=== PATIENT | male | born 1970 | race Caucasian/White ===

== ENCOUNTER 2017-01-18 08:08 | Emergency (ER) | payer BC ==
[2017-01-18 08:12] VITALS: RESP 18; TEMP 98.3
[2017-01-18] MEDS ORDERED: CYCLOBENZAPRINE 10 MG TAB PO STA (08:25)
[2017-01-18] MEDS ORDERED: HYDROmorphone 2 MG/ML 1 ML SYRINGE IM STA (08:25)
--- NOTE | 2017-01-18 08:51 | ED ---
Back Pain HPI - General Chief Complaint: Back Pain/Injury Stated Complaint: Back Pain Time Seen by Provider: 01/18/17 08:13 Source: patient, RN notes reviewed Mode of arrival: wheelchair Limitations: no limitations - History of Present Illness Initial Comments: This a 46-year-old male presents emergency Department chief complaint of right low back pain. Patient states at 545am this morning he was doing leg press states that he was playing the weights back towards him when he felt a sudden onset of pain in his right low back. He states he felt a pop and states that he has pain radiating from that region down his right leg in the posterior aspect. He states it goes just past his knee. Patient states that he has had issues with his back in the past but states it primarily on his left side in which she did receive injections in his back and help. Patient states he normally takes naproxen and baclofen. Patient denies any bowel incontinence or bladder retention. Patient denies any abdominal pain including nausea vomiting diarrhea constipation. Patient denies any dysuria or hematuria. Patient has not taken any medications prior arrival for this pain. He states it's very unbearable. He states makes it hard to move his right leg - Related Data Home Medications Medication Instructions Recorded Confirmed Dextroamphetamine/Amphetamine 30 ng PO DAILY 03/29/14 01/18/17 [Adderall Xr] Dextroamphetamine/Amphetamine 20 mg PO AC-LUNCH 03/29/14 01/18/17 [Adderall] Naproxen 500 mg PO BID PRN 03/29/14 01/18/17 Baclofen [Lioresal] 20 mg PO TID 01/18/17 01/18/17 Lisinopril [Prinivil] 10 mg PO DAILY 01/18/17 01/18/17 Pravastatin Sodium [Pravachol] 40 mg PO HS 01/18/17 01/18/17 Pregabalin [Lyrica] 50 mg PO TID 01/18/17 01/18/17 Testosterone Cypionate 200 mg IM Q14D 01/18/17 01/18/17 [Depo-Testosterone] buPROPion HCL [Wellbutrin SR] 200 mg PO BID 01/18/17 01/18/17 Previous Rx's Medication Instructions Recorded Hydrocodone/Acetaminophen [Freedom 1 tab PO Q6HR PRN #20 tab 01/18/17 5-325] Allergies Allergy/AdvReac Type Severity Reaction Status Date / Time fentanyl Allergy Rash/Hives Verified 01/18/17 08:31 moxifloxacin HCl Allergy Anaphylaxis Verified 01/18/17 08:31 [From Avelox] duloxetine HCl AdvReac Nausea & Verified 01/18/17 08:31 [From Cymbalta] Vomiting Review of Systems ROS Statement: Those systems with pertinent positive or pertinent negative responses have been documented in the HPI. ROS Other: All systems not noted in ROS Statement are negative. Past Medical History Past Medical History: Cancer, Chest Pain / Angina, Hyperlipidemia, Hypertension , Memory Impairment, Musculoskeletal Disorder, Neurologic Disorder, Sleep Apnea/ CPAP/BIPAP Additional Past Medical History / Comment(s): cyst on one kidney, severe dizzy spells, cancer --skin cancer x2, trigeminal nerve damage, back pain, sleep apnea (does not use c-pap), occasional rapid heart rate. History of Any Multi-Drug Resistant Organisms: None Reported Additional Past Surgical History / Comment(s): sinus surgery x3, skin cancer removal, orbital fracture repair Past Anesthesia/Blood Transfusion Reactions: No Reported Reaction Past Psychological History: Anxiety, Depression, Panic Disorder, PTSD Smoking Status: Never smoker Past Alcohol Use History: Rare Past Drug Use History: None Reported - Past Family History Mother Family Medical History: Diabetes Mellitus, Rheumatoid Arthritis (RA) General Exam Limitations: no limitations General appearance: alert, in no apparent distress Head exam: Present: atraumatic, normocephalic, normal inspection Neck exam: Present: normal inspection, full ROM. Absent: tenderness, meningismus, lymphadenopathy Respiratory exam: Present: normal lung sounds bilaterally. Absent: respiratory distress, wheezes, rales, rhonchi, stridor Cardiovascular Exam: Present: regular rate, normal rhythm, normal heart sounds. Absent: systolic murmur, diastolic murmur, rubs, gallop, clicks GI/Abdominal exam: Present: soft, normal bowel sounds. Absent: distended, tenderness, guarding, rebound, rigid Extremities exam: Present: other (Lower extremity neurovascular intact equal clinical warmth) Back exam: Present: tenderness (Moderate tenderness right lumbar paraspinal L4- L5, sacral), paraspinal tenderness. Absent: full ROM (Decreased range of motion secondary to pain, patient states able to perform range of motion is not for the pain), CVA tenderness (R), CVA tenderness (L), vertebral tenderness Neurological exam: Present: alert, oriented X3, CN II-XII intact, reflexes normal. Absent: motor sensory deficit Skin exam: Present: warm, dry, intact, normal color. Absent: rash Course Vital Signs 01/18/17 08:10 Temperature 98.3 F Pulse Rate 115 H Respiratory 18 Rate Blood Pressure 136/87 O2 Sat by Pulse 96 Oximetry Medical Decision Making - Medical Decision Making 46-year-old male present emergency from her with chief complaint of low back pain. Patient CT compared to thousand 15 shows mild progression of discharge duration. Patient has disc bulging noted no obvious disc herniation. We did discuss MRI is a better study. Patient with follow-up with primary care physician and Dr. Houston back specialist. Patient be given Freedom. We did discuss steroids though he states he was just on recent steroids and he had some side effects from it. Patient prefers not to go on any steroids at this time. Patient will use Robaxin that he has at home in addition to the Freedom that I will prescribe him. Return parameters were discussed. Patient has no red flag symptoms. Disposition Clinical Impression: Strain of lumbar region, Bulging lumbar disc, Lumbar radiculopathy Disposition: HOME SELF-CARE Condition: Stable Instructions: Acute Low Back Pain (ED) Additional Instructions: Please return to the Emergency Department if symptoms worsen or any other concerns. Prescriptions: Hydrocodone/Acetaminophen [Freedom 5-325] 1 tab PO Q6HR PRN #20 tab PRN Reason: Pain Referrals: Neal Arredondo MD [Primary Care Provider] - 1-2 days Louisa Boo DO [Doctor of Osteopathic Medicine] - 1-2 days Time of Disposition: 09:10
--- NOTE | 2017-01-18 08:58 | CT ---
EXAMINATION TYPE: CT lumbar spine wo con DATE OF EXAM: 01/18/2017 8:49 AM COMPARISON: MRI lumbar spine dated 01/20/2015. HISTORY: Back pain CT DLP: 622.4 mGycm Automated exposure control for dose reduction was used. Unenhanced CT of the lumbar spine was performed. Bone and soft tissue window settings are submitted as well as coronal and sagittal reconstructions. There has been mild interval progression of multilevel degenerative disc disease in comparison to the prior MRI of 2014. Vertebral bodies maintain normal vertebral body height and alignment. Mild facet arthropathy is seen at L3-L4, L4-L5 and L5-S1. There is no evidence of acute fracture or malalignment of the lumbosacral spine. Note is made of left hemisacralization of L5. Mild atheromatous changes ar e seen of the visualized abdominal aorta. L1-L2: Normal disc space height. No disc herniation protrusion or central stenosis. No facet joint arthropathy. No evidence for foraminal encroachment. L2-L3: There is flattening of the usual disc convexity posteriorly from a broad-based disc bulge resu lting in mild bilateral neural foraminal narrowing. No spinal canal stenosis. No focality to suggest herniation. L3-L4: Broad-based disc bulge in combination with facet arthropathy creates moderate bilateral neural foraminal narrowing. There is also resultant mild spinal canal stenosis. L4-L5: Right eccentric broad-based disc bulge creates moderate to severe right neural foraminal narro wing and mild left neural foraminal narrowing in combination with facet arthropathy. Mild spinal del l stenosis is also seen as a result of the above findings. L5-S1: Normal disc space height. No disc herniation protrusion or central stenosis. No facet joint arthropathy. No evidence for foraminal encroachment. IMPRESSION: No CT evidence of disc herniation, although this finding is better evaluated with MRI. Th ere is been interval increase in degenerative disc disease in comparison to the exam of 2014 with bro ad-based disc bulges at L2-L5, right eccentric at L4-L5. This results in mild spinal canal stenosis a t L3-L4 and moderate bilateral neural foraminal narrowing as well as mild spinal canal stenosis at L4 -L5, moderate to severe right neural foraminal narrowing and mild left neural foraminal narrowing.
[2017-01-18] MEDS ORDERED: ONDANSETRON 4 MG ODT STARTER PACK 2 TAB BTL PO STA (09:22)
[2017-01-18] MEDS ORDERED: ONDANSETRON ODT 4 MG TAB PO STA (09:22)
[2017-01-18 09:31] VITALS: BP 122/63; PULSE 97
== END 2017-01-18 09:31 | disposition home or self-care (01) ==
LOC: EC 08:08
DX: S39.012A Strain of muscle, fascia and tendon of lower back, initial encounter (principal); M51.16 Intervertebral disc disorders with radiculopathy, lumbar region; E78.5 Hyperlipidemia, unspecified; I10 Essential (primary) hypertension; M62.9 Disorder of muscle, unspecified; F32.9 Major depressive disorder, single episode, unspecified; Z79.899 Other long term (current) drug therapy; Z88.1 Allergy status to other antibiotic agents; Z88.5 Allergy status to narcotic agent; Z88.8 Allergy status to other drugs, medicaments and biological substances; Z85.828 Personal history of other malignant neoplasm of skin; Z98.890 Other specified postprocedural states; Z82.61 Family history of arthritis; X50.9XXA Other and unspecified overexertion or strenuous movements or postures, initial encounter; Y93.B9 Activity, other involving muscle strengthening exercises
CPT/HCPCS: 72131; 99283; 96372; J1170; S0119

== ENCOUNTER → 2017-11-07 | Outpatient (CLI) | payer BC ==
--- NOTE | 2017-11-07 17:04 | US ---
EXAMINATION TYPE: US kidneys/renal and bladder DATE OF EXAM: 11/07/2017 COMPARISON: CLINICAL HISTORY: Renal Cyst N28.1. hx of right renal cyst. No pain. EXAM MEASUREMENTS: Right Kidney: 9.5 x 5.7 x 5.2 cm Left Kidney: 11.1 x 4.8 x 5.4 cm Right Kidney: Two simple cystic appearing lesions seen. 1- pedunculated mid pole = 0.8 x 1.1 x 0.8 c m. 2- cortical in lower pole= 0.6 x 1.0 x 0.8 cm Left Kidney: dromedary hump seen Bladder: distended, wnl as visualized Bilateral Jets seen IMPRESSION: Small right renal cysts. No evidence of solid renal mass or obstruction.
== END | disposition home or self-care (01) ==
LOC: RADUSWWP 16:19
PROVIDERS: ATTEND Urology
DX: N28.1 Cyst of kidney, acquired (principal)
CPT/HCPCS: 76770

== ENCOUNTER 2020-04-26 21:02 | Observation (INO) | payer BC ==
[2020-04-26] MEDS ORDERED: SODIUM CHLORIDE 0.9% 1,000 ML IV STA (21:55)
[2020-04-26] MEDS ORDERED: MORPHINE SULFATE 4 MG/ML SYRINGE IV STA (21:55)
[2020-04-26] MEDS ORDERED: LIDOCAINE 5% PATCH TOPICAL STA (21:57)
--- NOTE | 2020-04-26 21:58 | ED ---
General Adult HPI - General Source: patient Mode of arrival: wheelchair Limitations: no limitations <German Miller - Last Filed: 04/27/20 12:12> - General Source: RN notes reviewed, old records reviewed <Manish Doherty - Last Filed: 04/28/20 02:37> - General Chief complaint: Chest Pain Stated complaint: Chest Pain Time Seen by Provider: 04/26/20 21:24 - History of Present Illness Initial comments: Dictation was produced using [employer] dictation software. please excuse any grammatical, word or spelling errors. This patient was cared for during a federal and state declared state of emergency secondary to Covid 19 Chief Complaint: 41-year-old male with past medical history of hypertension, high cholesterol presents to the emergency department for chest pain History of Present Illness: She is 49-year-old male presents today with chest pain. Patient has multiple comorbidities. Patient states that lasts 24-48 hours he's been developing left anterior chest pain with radiation to the left upper back. States it's causing him pain especially when he takes a deep breath. Patient also complaining of right popliteal pain. Patient has no history of blood clots. Last week patient was recently started on cholesterol medication. Patient has any fever. No cough. He does also feel worse pain whenever he presses on his left anterior chest. No history of coronary artery disease. The ROS documented in this emergency department record has been reviewed and confirmed by me. Those systems with pertinent positive or negative responses have been documented in the HPI. All other systems are other negative and/or noncontributory. PHYSICAL EXAM: General Impression: Alert and oriented x3, acute distress secondary to pain HEENT: Normocephalic atraumatic, extra-ocular movements intact, pupils equal and reactive to light bilaterally, mucous membranes moist. Cardiovascular: Heart regular rate and rhythm Chest: Able to complete full sentences, no retractions, no tachypnea, tenderness to palpation of the left anterior chest at approximately the ninth rib anterior axillary line Abdomen: abdomen soft, non-tender, non-distended, no organomegaly Musculoskeletal: Pulses present and equal in all extremities, no peripheral edema Motor: no focal deficits noted Neurological: CN II-XII grossly intact, no focal motor or sensory deficits noted Skin: Intact with no visualized rashes Psych: Normal affect and mood ED course: 49 y Old male presents with pleuritic chest pain. Does appear to be in mild distress. Clinical presentation suspicious for pulmonary embolus. All signs upon arrival shows findings within acceptable limits. 3 evaluation obtained. CBC is negative. Coag panel is negative. D-dimer is elevated 2.83. Metabolic panel is negative. Troponins negative. Patient signed out to Dr. Mendez will follow-up with CT angios results and results for the venous duplex ultrasound the right lower extremity. EKG interpretation: Ventricular rate 74, normal sinus rhythm, GA interval 190, QRS 90, QTC 399. No GA prolongation, no QTC prolongation, no ST or T-wave changes noted. EKG compared to 06/11/2014 showing no changes. Overall, this EKG is unremarkable (German Miller) - Related Data Home Medications Medication Instructions Recorded Confirmed Naproxen 500 mg PO BID PRN 03/29/14 04/27/20 Pravastatin Sodium [Pravachol] 80 mg PO HS 01/18/17 04/27/20 Testosterone Cypionate 200 mg IM Q14D 01/18/17 04/27/20 [Depo-Testosterone] Lisdexamfetamine Dimesylate 70 mg PO QAM 04/27/20 04/27/20 [Vyvanse] Metoprolol Tartrate 25 mg PO BID 04/27/20 04/27/20 Omeprazole 20 mg PO BID 04/27/20 04/27/20 Tadalafil [Cialis] 20 mg PO DAILY 04/27/20 04/27/20 Tamsulosin HCl [Flomax] 0.4 mg PO DAILY 04/27/20 04/27/20 buPROPion HCL [Wellbutrin XL] 450 mg PO DAILY 04/27/20 04/27/20 methocarbamoL [Robaxin] 500 mg PO TID 04/27/20 04/27/20 modafiniL [Provigil] 200 mg PO BID 04/27/20 04/27/20 Allergies Allergy/AdvReac Type Severity Reaction Status Date / Time fentanyl Allergy Rash/Hives Verified 04/27/20 09:26 moxifloxacin HCl Allergy Anaphylaxis Verified 04/27/20 09:26 [From Avelox] duloxetine HCl AdvReac Nausea & Verified 04/27/20 09:26 [From Cymbalta] Vomiting Review of Systems ROS Other: All systems not noted in ROS Statement are negative. <German Miller - Last Filed: 04/27/20 12:12> ROS Other: All systems not noted in ROS Statement are negative. <MayraManish harris Clay - Last Filed: 04/28/20 02:37> ROS Statement: Those systems with pertinent positive or pertinent negative responses have been documented in the HPI. Past Medical History Past Medical History: Cancer, Chest Pain / Angina, Hyperlipidemia, Hypertension, Memory Impairment, Musculoskeletal Disorder, Neurologic Disorder, Sleep Apnea/CPAP/BIPAP Additional Past Medical History / Comment(s): cyst on one kidney, severe dizzy spells, cancer --skin cancer x2, trigeminal nerve damage, back pain, sleep apnea(does not use c-pap), occasional rapid heart rate. History of Any Multi-Drug Resistant Organisms: None Reported Additional Past Surgical History / Comment(s): sinus surgery x3, skin cancer removal, orbital fracture repair Past Anesthesia/Blood Transfusion Reactions: No Reported Reaction Past Psychological History: Anxiety, Depression, Panic Disorder, PTSD Smoking Status: Never smoker Past Alcohol Use History: Rare Past Drug Use History: None Reported - Past Family History Mother Family Medical History: Diabetes Mellitus, Rheumatoid Arthritis (RA) <German Miller - Last Filed: 04/27/20 12:12> General Exam Limitations: no limitations <German Miller - Last Filed: 04/27/20 12:12> General appearance: alert, in no apparent distress Head exam: Present: atraumatic, normocephalic, normal inspection Eye exam: Present: normal appearance, PERRL, EOMI. Absent: scleral icterus, conjunctival injection, periorbital swelling ENT exam: Present: normal exam, mucous membranes moist Neck exam: Present: normal inspection. Absent: tenderness, meningismus, lymphadenopathy Respiratory exam: Present: normal lung sounds bilaterally. Absent: respiratory distress, wheezes, rales, rhonchi, stridor Cardiovascular Exam: Present: regular rate, normal rhythm, normal heart sounds. Absent: systolic murmur, diastolic murmur, rubs, gallop, clicks GI/Abdominal exam: Present: soft, normal bowel sounds. Absent: distended, tenderness, guarding, rebound, rigid Extremities exam: Present: normal inspection, full ROM, normal capillary refill. Absent: tenderness, pedal edema, joint swelling, calf tenderness Back exam: Present: normal inspection Neurological exam: Present: alert, oriented X3, CN II-XII intact Psychiatric exam: Present: normal affect, normal mood Skin exam: Present: warm, dry, intact, normal color. Absent: rash <Manish Doherty - Last Filed: 04/28/20 02:37> Course <Manish Doherty - Last Filed: 04/28/20 02:37> Vital Signs 04/26/20 04/26/20 04/26/20 21:06 21:10 22:00 Temperature 98.4 F Pulse Rate 80 70 Pulse Rate [ 82 Director Of User Experience ] Respiratory 18 20 18 Rate Blood Pressure 112/83 108/81 O2 Sat by Pulse 99 95 Oximetry 04/26/20 04/26/20 04/27/20 23:30 23:57 01:36 Temperature Pulse Rate 76 77 82 Pulse Rate [ Director Of User Experience ] Respiratory 20 18 18 Rate Blood Pressure 118/80 109/81 109/81 O2 Sat by Pulse 99 94 L 95 Oximetry - Reevaluation(s) Reevaluation #1: Medical record is reviewed Patient did have persistent pain here in the emergency department, pleuritic pain significant worse with breathing splinting his breathing. Patient admitted for cardiac (Manish Doherty) Medical Decision Making - Lab Data Result diagrams: 04/26/20 21:56 04/26/20 21:56 <German Miller - Last Filed: 04/27/20 12:12> - Lab Data Result diagrams: 04/26/20 21:56 04/26/20 21:56 <Manish Doherty - Last Filed: 04/28/20 02:37> - Medical Decision Making 49 male to the ER for evaluation of pleuritic chest pain. CT was negative for PE the patient believes admitted for cardiac observation, ultrasound rule out pericarditis (Mnaish Doherty) - Lab Data Lab Results 04/26/20 04/26/20 04/26/20 Range/Units 21:56 21:56 21:56 WBC 11.0 H (3.8-10.6) k/uL RBC 5.54 (4.30-5.90) m/uL Hgb 16.6 (13.0-17.5) gm/dL Hct 49.1 (39.0-53.0) % MCV 88.7 (80.0-100.0) fL MCH 29.9 (25.0-35.0) pg MCHC 33.7 (31.0-37.0) g/dL RDW 13.7 (11.5-15.5) % Plt Count 180 (150-450) k/uL MPV 7.8 Neutrophils % 74 % Lymphocytes % 15 % Monocytes % 6 % Eosinophils % 3 % Basophils % 1 % Neutrophils # 8.2 H (1.3-7.7) k/uL Lymphocytes # 1.7 (1.0-4.8) k/uL Monocytes # 0.7 (0-1.0) k/uL Eosinophils # 0.3 (0-0.7) k/uL Basophils # 0.1 (0-0.2) k/uL PT 10.4 (9.0-12.0) sec INR 1.0 (<1.2) APTT 21.8 L (22.0-30.0) sec D-Dimer 2.83 H (<0.60) mg/L FEU Sodium 136 L (137-145) mmol/L Potassium 5.2 H (3.5-5.1) mmol/L Chloride 102 (98-107) mmol/L Carbon Dioxide 25 (22-30) mmol/L Anion Gap 9 mmol/L BUN 28 H (9-20) mg/dL Creatinine 1.28 H (0.66-1.25) mg/dL Est GFR (CKD-EPI)AfAm 76 (>60 ml/min/1.73 sqM) Est GFR (CKD-EPI)NonAf 66 (>60 ml/min/1.73 sqM) Glucose 86 (74-99) mg/dL Calcium 9.7 (8.4-10.2) mg/dL Magnesium 2.2 (1.6-2.3) mg/dL Total Bilirubin 0.7 (0.2-1.3) mg/dL AST 24 (17-59) U/L ALT 29 (4-49) U/L Alkaline Phosphatase 59 (38-126) U/L Creatine Kinase 68 (55-170) U/L Troponin I (0.000-0.034) ng/mL Total Protein 7.6 (6.3-8.2) g/dL Albumin 4.6 (3.5-5.0) g/dL 04/26/20 Range/Units 21:56 WBC (3.8-10.6) k/uL RBC (4.30-5.90) m/uL Hgb (13.0-17.5) gm/dL Hct (39.0-53.0) % MCV (80.0-100.0) fL MCH (25.0-35.0) pg MCHC (31.0-37.0) g/dL RDW (11.5-15.5) % Plt Count (150-450) k/uL MPV Neutrophils % % Lymphocytes % % Monocytes % % Eosinophils % % Basophils % % Neutrophils # (1.3-7.7) k/uL Lymphocytes # (1.0-4.8) k/uL Monocytes # (0-1.0) k/uL Eosinophils # (0-0.7) k/uL Basophils # (0-0.2) k/uL PT (9.0-12.0) sec INR (<1.2) APTT (22.0-30.0) sec D-Dimer (<0.60) mg/L FEU Sodium (137-145) mmol/L Potassium (3.5-5.1) mmol/L Chloride (98-107) mmol/L Carbon Dioxide (22-30) mmol/L Anion Gap mmol/L BUN (9-20) mg/dL Creatinine (0.66-1.25) mg/dL Est GFR (CKD-EPI)AfAm (>60 ml/min/1.73 sqM) Est GFR (CKD-EPI)NonAf (>60 ml/min/1.73 sqM) Glucose (74-99) mg/dL Calcium (8.4-10.2) mg/dL Magnesium (1.6-2.3) mg/dL Total Bilirubin (0.2-1.3) mg/dL AST (17-59) U/L ALT (4-49) U/L Alkaline Phosphatase (38-126) U/L Creatine Kinase (55-170) U/L Troponin I <0.012 (0.000-0.034) ng/mL Total Protein (6.3-8.2) g/dL Albumin (3.5-5.0) g/dL Disposition Decision Time: 12:14 <German Miller - Last Filed: 04/27/20 12:12> Is patient prescribed a controlled substance at d/c from ED?: No <Manish Doherty - Last Filed: 04/28/20 02:37> Clinical Impression: Chest pain, Anterior pleuritic pain Disposition: ADMITTED IP TO THIS HOSP Condition: Good
[2020-04-26 22:07] LABS: Basophils # (A) 0.1 k/uL (0-0.2); Basophils % (A) 1 %; Eosinophils # (A) 0.3 k/uL (0-0.7); Eosinophils % (A) 3 %; HCT 49.1 % (39.0-53.0); HGB 16.6 gm/dL (13.0-17.5); Lymphocytes # (A) 1.7 k/uL (1.0-4.8); Lymphocytes % (A) 15 %; MCH 29.9 pg (25.0-35.0); MCHC 33.7 g/dL (31.0-37.0); MCV 88.7 fL (80.0-100.0); Mean Platelet Volume 7.8; Monocytes # (A) 0.7 k/uL (0-1.0); Monocytes % (A) 6 %; Neutrophils # (A) 8.2 k/uL (1.3-7.7); Neutrophils % (A) 74 %; Platelet Count 180 k/uL (150-450); RBC 5.54 m/uL (4.30-5.90); RDW 13.7 % (11.5-15.5)
--- NOTE | 2020-04-26 22:10 | XR ---
EXAMINATION TYPE: XR chest 1V portable DATE OF EXAM: 04/26/2020 COMPARISON: NONE HISTORY: Chest pain TECHNIQUE: Single view FINDINGS: There is no heart failure nor confluent pneumonic infiltrate. Costophrenic angles are clear . There are chest leads. IMPRESSION: No active cardiopulmonary disease.
[2020-04-26 22:22] LABS: Albumin 4.6 g/dL (3.5-5.0); Calcium 9.7 mg/dL (8.4-10.2); Magnesium 2.2 mg/dL (1.6-2.3); Potassium 5.2 mmol/L (3.5-5.1); Total Bilirubin 0.7 mg/dL (0.2-1.3); Total Protein 7.6 g/dL (6.3-8.2)
[2020-04-26] MEDS ORDERED: ONDANSETRON 4 MG/2 ML VIAL IVP STA (22:27)
[2020-04-26 22:31] LABS: Partial Thromboplastin Time 21.8 sec (22.0-30.0); Prothrombin Time 10.4 sec (9.0-12.0)
[2020-04-26 22:35] LABS: D-Dimer 2.83 mg/L FEU (<0.60)
[2020-04-26] MEDS ORDERED: HYDROmorphone 0.5 MG/0.5 ML SYRINGE IVP STA (23:40)
--- NOTE | 2020-04-26 23:50 | CT ---
EXAMINATION TYPE: CT angio chest DATE OF EXAM: 04/26/2020 COMPARISON: None HISTORY: SOB/ Chest pain CT DLP: 415.6 mGycm Automated exposure control for dose reduction was used. CONTRAST: Performed with IV Contrast, patient injected with 90 mL of Isovue 370. There are 3-D post processed images. There is mild subsegmental atelectasis in the posterior lung schmidt. There is no pulmonary mass. Ther e is no pleural effusion. There is no pericardial effusion. Heart appears normal. There is no mediastinal adenopathy. There are no hilar masses. Thoracic aorta is intact. There is no aneurysm or dissection. The ascending aorta measures 3.5 cm. There is normal contrast opacification of the pulmonary arteries. There are no filling defects. The thoracic spine is intact. There is no compression fracture. I see no bony destructive process. St ernum is intact. IMPRESSION: Mild subsegmental atelectasis in the posterior lung schmidt. No evidence of pulmonary embolism.
--- NOTE | 2020-04-26 23:59 | US ---
EXAMINATION TYPE: US venous doppler duplex LE RT DATE OF EXAM: 04/26/2020 11:50 PM COMPARISON: NONE CLINICAL HISTORY: popliteal pain. right knee pain SIDE PERFORMED: right TECHNIQUE: The lower extremity deep venous system is examined utilizing real time linear array sonog mukesh with graded compression, doppler sonography and color-flow sonography. VESSELS IMAGED: Common Femoral Vein Deep Femoral Vein Greater Saphenous Vein * Femoral Vein Popliteal Vein Small Saphenous Vein * Proximal Calf Veins (* superficial vessels) Right Leg: no evidence of DVT as visualized IMPRESSION: No sign of deep vein thrombosis in the right leg.
[2020-04-27] MEDS ORDERED: NITROGLYCERIN SL TABS 0.4 MG TAB SUBLINGUAL PRN (00:42)
[2020-04-27] MEDS ORDERED: ASPIRIN 81 MG PO STA (00:42)
[2020-04-27] MEDS ORDERED: DIAZEPAM 5 MG/ML 2 ML INJ IVP STA (01:20)
[2020-04-27] MEDS ORDERED: KETOROLAC 15 MG/ML 1 ML VIAL IVP STA (01:20)
[2020-04-27] MEDS: MORPHINE SULFATE 4 MG/ML SYRINGE IV PRN ×2 (04:19→07:25)
[2020-04-27] MEDS ORDERED: KETOROLAC 15 MG/ML 1 ML VIAL IVP SCH (06:00)
[2020-04-27] MEDS ORDERED: TESTOSTERONE CYPIONATE 200 MG/ML 1ML VIAL IM SCH (09:00)
[2020-04-27] MEDS: lisinopriL 10 MG TAB PO SCH ×2 (09:41→09:45)
[2020-04-27] MEDS: BACLOFEN 10 MG TAB PO SCH ×3 (09:41→21:41)
[2020-04-27] MEDS: buPROPion SR 100 MG TABLET.ER PO SCH ×2 (09:41→21:40)
[2020-04-27] MEDS: PREGABALIN 50 MG CAP PO SCH ×3 (09:41→21:40)
--- NOTE | 2020-04-27 09:46 | P.HPIM ---
History of Present Illness H&P Date: 04/27/20 Chief Complaint: Chest pain This 49-year-old male known to the practice history of hypertension hypercholesterolemia, patient states that approximately 10 days ago was seen at the [facility] for upper left-sided back pain, for which she was treated with prednisone resulting in some improvement. Symptoms persisted and approximately 48 hours ago he began developing anterior wall chest pain with radiation to the left upper back. Complains of pain with deep breaths. Patient does not complain of cough does not complain of fever does have increased pain with deep w palpation on the left anterior chest wall. Serial troponins are unremarkable, CT demonstrated no evidence of PE, pulse oximetry is also within normal limits Review of Systems Constitutional: Reports as per HPI Ears, nose, mouth and throat: Reports as per HPI Cardiovascular: Reports chest pain, Reports high blood pressure Respiratory: Reports as per HPI Gastrointestinal: Reports as per HPI Genitourinary: Reports as per HPI Musculoskeletal: Reports as per HPI Integumentary: Reports as per HPI Neurological: Reports as per HPI Psychiatric: Reports as per HPI Endocrine: Reports as per HPI Past Medical History Past Medical History: Cancer, Chest Pain / Angina, Hyperlipidemia, Hypertension, Memory Impairment, Musculoskeletal Disorder, Neurologic Disorder, Sleep Apnea/CPAP/BIPAP Additional Past Medical History / Comment(s): cyst on one kidney, severe dizzy spells, cancer --skin cancer x2, trigeminal nerve damage, back pain, sleep apnea(does not use c-pap), occasional rapid heart rate. History of Any Multi-Drug Resistant Organisms: None Reported Additional Past Surgical History / Comment(s): sinus surgery x3, skin cancer removal, orbital fracture repair Past Anesthesia/Blood Transfusion Reactions: No Reported Reaction Past Psychological History: Anxiety, Depression, Panic Disorder, PTSD Smoking Status: Never smoker Past Alcohol Use History: Rare Past Drug Use History: None Reported - Past Family History Mother Family Medical History: Diabetes Mellitus, Rheumatoid Arthritis (RA) Medications and Allergies Home Medications Medication Instructions Recorded Confirmed Type Dextroamphetamine/Amphetamine 30 ng PO DAILY 03/29/14 01/18/17 History [Adderall Xr] Dextroamphetamine/Amphetamine 20 mg PO AC-LUNCH 03/29/14 01/18/17 History [Adderall] Naproxen 500 mg PO BID PRN 03/29/14 01/18/17 History Baclofen [Lioresal] 20 mg PO TID 01/18/17 01/18/17 History Hydrocodone/Acetaminophen [[place]mes 1 tab PO Q6HR PRN #20 tab 01/18/17 Rx 5-325] Lisinopril [Prinivil] 10 mg PO DAILY 01/18/17 01/18/17 History Pravastatin Sodium [Pravachol] 40 mg PO HS 01/18/17 01/18/17 History Pregabalin [Lyrica] 50 mg PO TID 01/18/17 01/18/17 History Testosterone Cypionate 200 mg IM Q14D 01/18/17 01/18/17 History [Depo-Testosterone] buPROPion HCL [Wellbutrin SR] 200 mg PO BID 01/18/17 01/18/17 History Allergies Allergy/AdvReac Type Severity Reaction Status Date / Time fentanyl Allergy Rash/Hives Verified 04/26/20 21:09 moxifloxacin HCl Allergy Anaphylaxis Verified 04/26/20 21:09 [From Avelox] duloxetine HCl AdvReac Nausea & Verified 04/26/20 21:09 [From Cymbalta] Vomiting Physical Exam Osteopathic Statement: *. No significant issues noted on an osteopathic structural exam other than those noted in the History and Physical/Consult. Vitals: Vital Signs Temp Pulse Pulse Resp BP BP Pulse Ox 04/27/20 06:51 97.5 F L 68 18 110/72 96 04/27/20 02:15 98.6 F 76 109/71 96 04/27/20 02:10 76 04/27/20 01:36 82 18 109/81 95 04/26/20 23:57 77 18 109/81 94 L 04/26/20 23:30 76 20 118/80 99 04/26/20 22:00 70 18 108/81 95 04/26/20 21:10 82 20 04/26/20 21:06 98.4 F 80 18 112/83 99 Intake and Output 04/26/20 04/27/20 04/27/20 22:59 06:59 14:59 Other: Voiding Method Toilet Toilet # Voids 1 Weight 104.326 kg 104.326 kg General: [Patient awake, alert and oriented times 3. Patient in no acute distress.] HEENT: [PERRL. EOMI. No pharyngeal erythema or exudate.] Neck: [No adenopathy.] Cardiac: [Heart regular in rate and rhythm. No S3. No S4. No clicks, rubs. No murmur. I'm going midsternal chest pain radiating to the left arm and shoulder Lungs: [Clear to auscultation bilaterally. Significant left sided chest discomfort with deep palpation as well as deep breaths Abdomen: [No mass. No organomegaly. Bowel sounds presnt and normoactive in all 4 quadrants.] Extremes: [No edema no cyanosis no claudication normal pulses] : Normal male genitalia Musculoskeletal: [No joint erythema, edema or tenderness.] Skin: [No rash.] Neurologic: [No lateralizing deficits. CN II - XII grossly intact.] Lymphatic: [No adenopathy.] Results CBC & Chem 7: 04/26/20 21:56 04/26/20 21:56 Labs: Abnormal Lab Results - Last 24 Hours (Table) 04/26/20 04/26/20 04/26/20 Range/Units 21:56 21:56 21:56 WBC 11.0 H (3.8-10.6) k/uL Neutrophils # 8.2 H (1.3-7.7) k/uL APTT 21.8 L (22.0-30.0) sec D-Dimer 2.83 H (<0.60) mg/L FEU Sodium 136 L (137-145) mmol/L Potassium 5.2 H (3.5-5.1) mmol/L BUN 28 H (9-20) mg/dL Creatinine 1.28 H (0.66-1.25) mg/dL Thrombosis Risk Factor Assmnt - DVT/VTE Prophylaxis DVT/VTE Prophylaxis: Low risk, early ambulation encouraged - Choose All That Apply Each Factor Represents 1 point: Age 41-60 years, Obesity (BMI >25) Thrombosis Risk Factor Assessment Total Risk Factor Score: 2 Thrombosis Risk Factor Assessment Level: Low Risk Assessment and Plan (1) Anterior pleuritic pain Current Visit: Yes Status: Acute Code(s): R07.81 - PLEURODYNIA SNOMED Co de(s): 2206754056215 (2) Chest pain Current Visit: Yes Status: Acute Code(s): R07.9 - CHEST PAIN, UNSPECIFIED SNOMED Code(s): 41676278 Plan: Troponins negative Presumptive diagnosis of pericarditis Cardiology consult pending IV Toradol IV steroids Aggressive pain management Lab is pending Consider indomethacin in place of Toradol will discuss with cardiology Time with Patient: Greater than 30
--- NOTE | 2020-04-27 09:59 | P.CRDCN ---
History of Present Illness Consult date: 04/27/20 Requesting physician: Neal Arredondo Reason for Consult (text): chest pain Chief complaint: chest pain History of present illness: This is a pleasant 49-year-old gentleman with a past medical history of hypertension, hyperlipidemia and chronic low back pain as well as skin cancer in the past involving his left shoulder, arm, neck and chest. He presented to the emergency department with complaints of left-sided chest discomfort that he describes as a cramping feeling pain has been quite constant with some worsening with palpation of the left mid axillary area and worsening with deep insp iration. Prior to this he did have some issues with some pain in his upper back which causes some tingling down his left arm and he was seen at the [facility] and prescribed prednisone without much relief. Chest x-ray on admission showed no active cardiopulmonary disease. His d-dimer was elevated and he underwent ultrasound of the right lower extremity due to some cramping pain in that calf earlier in the day which was negative for DVT. CT of the chest showed mild subsegmental atelectasis in the posterior lung schmidt, no evidence of pulmonary embolism, no pleural effusion, no pericardial effusion and the heart appears normal. EKG on admission showed normal sinus rhythm. Laboratory values show white blood cell count 11,000, d-dimer 2.83, sodium 136, potassium 5.2, BUN 28 and creatinine 1.28. Troponin levels have been negative 3. Vital signs are stable and blood pressure has been very well controlled. Upon examination patient appears quite uncomfortable. He is holding his left chest. He continues to complain of a cramping feeling in the left anterior chest that radiates around to the mid axillary line. Again worse with deep inspiration and worse with palpation and some areas. He denies any shortness of breath. He does have a dry cough which has been chronic over the last couple of years. I feel this could be related to his LATISHA inhibitor. He denies any lower extremity edema, palpitations, dizziness or lightheadedness. Past Medical History Past Medical History: Cancer, Chest Pain / Angina, Hyperlipidemia, Hypertension, Memory Impairment, Musculoskeletal Disorder, Neurologic Disorder, Sleep Apnea/CPAP/BIPAP Additional Past Medical History / Comment(s): cyst on one kidney, severe dizzy spells, cancer --skin cancer x2, trigeminal nerve damage, back pain, sleep apnea(does not use c-pap), occasional rapid heart rate. History of Any Multi-Drug Resistant Organisms: None Reported Additional Past Surgical History / Comment(s): sinus surgery x3, skin cancer removal, orbital fracture repair Past Anesthesia/Blood Transfusion Reactions: No Reported Reaction Past Psychological History: Anxiety, Depression, Panic Disorder, PTSD Smoking Status: Never smoker Past Alcohol Use History: Rare Past Drug Use History: None Reported - Past Family History Mother Family Medical History: Diabetes Mellitus, Rheumatoid Arthritis (RA) Medications and Allergies Home Medications Medication Instructions Recorded Confirmed Type Naproxen 500 mg PO BID PRN 03/29/14 04/27/20 History Pravastatin Sodium [Pravachol] 80 mg PO HS 01/18/17 04/27/20 History Testosterone Cypionate 200 mg IM Q14D 01/18/17 04/27/20 History [Depo-Testosterone] Lisdexamfetamine Dimesylate 70 mg PO QAM 04/27/20 04/27/20 History [Vyvanse] Metoprolol Tartrate 25 mg PO BID 04/27/20 04/27/20 History Omeprazole 20 mg PO BID 04/27/20 04/27/20 History Tadalafil [Cialis] 20 mg PO DAILY 04/27/20 04/27/20 History Tamsulosin HCl [Flomax] 0.4 mg PO DAILY 04/27/20 04/27/20 History buPROPion HCL [Wellbutrin XL] 450 mg PO DAILY 04/27/20 04/27/20 History methocarbamoL [Robaxin] 500 mg PO TID 04/27/20 04/27/20 History modafiniL [Provigil] 200 mg PO BID 04/27/20 04/27/20 History Allergies Allergy/AdvReac Type Severity Reaction Status Date / Time fentanyl Allergy Rash/Hives Verified 04/27/20 09:26 moxifloxacin HCl Allergy Anaphylaxis Verified 04/27/20 09:26 [From Avelox] duloxetine HCl AdvReac Nausea & Verified 04/27/20 09:26 [From Cymbalta] Vomiting Physical Exam Vitals: Vital Signs Temp Pulse Pulse Resp BP BP Pulse Ox 04/27/20 06:51 97.5 F L 68 18 110/72 96 04/27/20 02:15 98.6 F 76 109/71 96 04/27/20 02:10 76 04/27/20 01:36 82 18 109/81 95 04/26/20 23:57 77 18 109/81 94 L 04/26/20 23:30 76 20 118/80 99 04/26/20 22:00 70 18 108/81 95 04/26/20 21:10 82 20 04/26/20 21:06 98.4 F 80 18 112/83 99 Intake and Output 04/26/20 04/27/20 04/27/20 22:59 06:59 14:59 Other: Voiding Method Toilet Toilet # Voids 1 Weight 104.326 kg 104.326 kg PHYSICAL EXAMINATION: This is a 49-year-old male in no apparent distress at the time of my examination. VITAL SIGNS: Blood pressure 110/72, heart rate 68, respirations 18, temp 97.5F. Patient is 96 % on room air. HEENT: Head is atraumatic, normocephalic. Pupils are equal, round. Sclerae anicteric. Conjunctivae are clear. Mucous membranes of the mouth are moist. Neck is supple. There is no elevated jugular venous pressure. No carotid bruit is heard. CHEST EXAMINATION: Clear to auscultation bilaterally. No wheezes rales or rhonchi. Respirations even and nonlabored. HEART EXAMINATION: Heart regular, positive S1 and S2. No S3. No S4. No clicks, rubs or murmurs. ABDOMEN: Soft, nontender. Bowel sounds are heard. No organomegaly noted. EXTREMITIES: 2+ peripheral pulses with no evidence of peripheral edema and no calf tenderness noted. NEUROLOGIC EXAMINATION: Patient is awake, alert and oriented x3. Results 04/26/20 21:56 04/26/20 21:56 Cardiac Enzymes 04/26/20 04/26/20 04/27/20 Range/Units 21:56 21:56 01:12 AST 24 (17-59) U/L Troponin I <0.012 <0.012 (0.000-0.034) ng/mL 04/27/20 Range/Units 04:47 AST (17-59) U/L Troponin I <0.012 (0.000-0.034) ng/mL Coagulation 04/26/20 Range/Units 21:56 PT 10.4 (9.0-12.0) sec APTT 21.8 L (22.0-30.0) sec CBC 04/26/20 Range/Units 21:56 WBC 11.0 H (3.8-10.6) k/uL RBC 5.54 (4.30-5.90) m/uL Hgb 16.6 (13.0-17.5) gm/dL Hct 49.1 (39.0-53.0) % Plt Count 180 (150-450) k/uL Comprehensive Metabolic Panel 04/26/20 Range/Units 21:56 Sodium 136 L (137-145) mmol/L Potassium 5.2 H (3.5-5.1) mmol/L Chloride 102 (98-107) mmol/L Carbon Dioxide 25 (22-30) mmol/L BUN 28 H (9-20) mg/dL Creatinine 1.28 H (0.66-1.25) mg/dL Glucose 86 (74-99) mg/dL Calcium 9.7 (8.4-10.2) mg/dL AST 24 (17-59) U/L ALT 29 (4-49) U/L Alkaline Phosphatase 59 (38-126) U/L Total Protein 7.6 (6.3-8.2) g/dL Albumin 4.6 (3.5-5.0) g/dL Current Medications Generic Name Dose Route Start Last Admin Trade Name Freq PRN Reason Stop Dose Admin Aspirin 325 mg 04/28/20 09:00 Aspirin 325 Mg Tab PO DAILY BARRIE Baclofen 20 mg 04/27/20 09:00 04/27/20 09:41 Baclofen 10 Mg Tab PO 20 mg TID BARRIE Administration Bupropion HCl 200 mg 04/27/20 09:00 04/27/20 09:41 Bupropion Sr 100 Mg Tablet.Er PO 200 mg BID BARRIE Administration Ketorolac Tromethamine 30 mg 04/27/20 12:00 Ketorolac 15 Mg/Ml 1 Ml Vial IVP 05/02/20 12:01 Q6HR [facility] Lisinopril 10 mg 04/27/20 09:00 04/27/20 09:45 Lisinopril 10 Mg Tab PO Not Given DAILY [facility] Methylprednisolone Sodium Succinate 60 mg 04/27/20 12:00 Methylprednisolone Sod Succi 125 Mg/2 Ml Vial IV Q6HR [facility] Morphine Sulfate 4 mg 04/27/20 00:42 04/27/20 07:25 Morphine Sulfate 4 Mg/Ml Syringe IV 4 mg Q4HR PRN Administration Chest Pain Nitroglycerin 0.4 mg 04/27/20 00:42 Nitroglycerin Sl Tabs 0.4 Mg Tab SUBLINGUAL Q5M PRN Chest Pain Pravastatin Sodium 40 mg 04/27/20 21:00 Pravastatin Sodium 40 Mg Tab PO HS BARRIE Pregabalin 50 mg 04/27/20 09:00 04/27/20 09:41 Pregabalin 50 Mg Cap PO 50 mg TID BARRIE Administration Intake and Output 04/26/20 04/27/20 04/27/20 22:59 06:59 14:59 Other: Voiding Method Toilet Toilet # Voids 1 Weight 104.326 kg 104.326 kg 04/26/20 21:56 04/26/20 21:56 Assessment and Plan Assessment: #1 symptoms of chest discomfort, atypical, an acute coronary event has been ruled out with no ischemic changes noted on EKG and troponin levels negative 3 #2 hypertension, well controlled #3 dry cough likely LATISHA inhibitor induced #4 renal insufficiency #5 hyperlipidemia #6 chronic back pain Plan: From cardiology's perspective we will review the echocardiogram with Doppler study to assess cardiac structure and function. We'll schedule the patient to undergo stress echocardiogram study tomorrow. We will discontinue lisinopril secondary to dry cough, mildly elevated potassium and abnormal renal function. We'll continue to follow the patient provide further recommendations accordingly. CLINICAL VETERINARIAN note has been reviewed, I agree with a documented findings and plan of care. Patient was seen and examined.
[2020-04-27] MEDS: KETOROLAC 15 MG/ML 1 ML VIAL IVP SCH ×3 (11:19→23:15)
[2020-04-27] MEDS: methylPREDNISolone SOD SUCCI 125 MG/2 ML VIAL IV SCH ×3 (11:20→23:15)
[2020-04-27] MEDS ORDERED: PRAVASTATIN SODIUM 40 MG TAB PO SCH (21:00)
[2020-04-28 00:39] LABS: Cholesterol 189 mg/dL (<200); HDL Cholesterol 38 mg/dL (40-60); LDL Cholesterol,Calculated 131 mg/dL (0-99); Triglycerides 98 mg/dL (<150)
[2020-04-28] MEDS: methylPREDNISolone SOD SUCCI 125 MG/2 ML VIAL IV SCH ×2 (06:06→12:19)
[2020-04-28] MEDS: KETOROLAC 15 MG/ML 1 ML VIAL IVP SCH ×2 (06:07→12:19)
[2020-04-28 08:07] VITALS: PULSE 112
[2020-04-28] MEDS ORDERED: ASPIRIN 81 MG PO SCH (09:00)
[2020-04-28] MEDS ORDERED: ASPIRIN 325 MG TAB PO SCH (09:00)
--- NOTE | 2020-04-28 10:32 | P.DS ---
Providers Date of admission: 04/27/20 00:42 Expected date of discharge: 04/28/20 Attending physician: Neal Arredondo Consults: 04/27/20 00:42 Consult Physician Urgent Consulting Provider: Roberto Caldera Consult Reason/Comments: cp Do you want consulting provider notified?: Yes Primary care physician: Neal Arredondo [facility] Course: Final Diagnoses: Chest pain, acute coronary syndrome ruled out, stress tests pending Pleuritic pain, minimal. Recently completed a steroid taper secondary to upper left-sided back, shoulder pain-repeats nontraumatic-reports improvement. Elevated d-dimer, CTA reported no PE Hypertension Hyperlipidemia Obesity, BMI 33 Obstructive Sleep apnea History of Anxiety, depression, panic disorder Hospital course:This 49-year-old male known to the practice history of hypertension hypercholesterolemia, patient states that approximately 10 days ago was seen at the [facility] for upper left-sided back pain, for which she was treated with prednisone resulting in some improvement. Symptoms persisted and approximately 48 hours ago he began developing anterior wall chest pain with radiation to the left upper back. Complains of pain with deep breaths. Patient does not complain of cough does not complain of fever does have increased pain with deep w palpation on the left anterior chest wall. Serial troponins are unremarkable, CT demonstrated no evidence of PE, pulse oximetry is also within normal limits. Evaluated by cardiology and patient is scheduled for stress test today. Reports mild right anterior chest pain constant, severity fluctuates. Able to deep breathe without pain. Denies shortness of breath. Nausea subsided. Patient will be discharged home today in a stable condition with guarded prognosis pending stress test results and final DC recommendations and clearance from cardiology. The impression and plan of care has been dictated as directed. : I performed a history and examination of this patient, discussed the same with the dictator. I agree with the dictator's note ,documented as a scribe. Any additional findings or plans will be noted. Patient Condition at Discharge: Stable Plan - Discharge Summary New Discharge Prescriptions: Continue Naproxen 500 mg PO BID PRN PRN Reason: Pain Testosterone Cypionate [Depo-Testosterone] 200 mg IM Q14D Pravastatin Sodium [Pravachol] 80 mg PO HS Tamsulosin HCl [Flomax] 0.4 mg PO DAILY modafiniL [Provigil] 200 mg PO BID methocarbamoL [Robaxin] 500 mg PO TID Omeprazole 20 mg PO BID Metoprolol Tartrate 25 mg PO BID buPROPion HCL [Wellbutrin XL] 450 mg PO DAILY Lisdexamfetamine Dimesylate [Vyvanse] 70 mg PO QAM No Action Tadalafil [Cialis] 20 mg PO DAILY Discharge Medication List Naproxen 500 mg PO BID PRN 03/29/14 [History] Pravastatin Sodium [Pravachol] 80 mg PO HS 01/18/17 [History] Testosterone Cypionate [Depo-Testosterone] 200 mg IM Q14D 01/18/17 [History] Lisdexamfetamine Dimesylate [Vyvanse] 70 mg PO QAM 04/27/20 [History] Metoprolol Tartrate 25 mg PO BID 04/27/20 [History] Omeprazole 20 mg PO BID 04/27/20 [History] Tadalafil [Cialis] 20 mg PO DAILY 04/27/20 [History] Tamsulosin HCl [Flomax] 0.4 mg PO DAILY 04/27/20 [History] buPROPion HCL [Wellbutrin XL] 450 mg PO DAILY 04/27/20 [History] methocarbamoL [Robaxin] 500 mg PO TID 04/27/20 [History] modafiniL [Provigil] 200 mg PO BID 04/27/20 [History] Follow up Appointment(s)/Referral(s): Neal Arredondo MD [Primary Care Provider] - 3 Days
[2020-04-28] MEDS ORDERED: ACETAMINOPHEN TAB 325 MG TAB PO PRN (11:02)
[2020-04-28] MEDS: buPROPion SR 100 MG TABLET.ER PO SCH (12:17)
[2020-04-28] MEDS: PREGABALIN 50 MG CAP PO SCH (12:18)
[2020-04-28] MEDS: BACLOFEN 10 MG TAB PO SCH (12:18)
--- NOTE | 2020-04-28 12:53 | ECHOF ---
Referral Reason:Presumptive diagnosis of pericarditis MEASUREMENTS -------- HEIGHT: 180.3 cm WEIGHT: 104.3 kg BP: RVIDd: 3.2 cm (< 3.3) IVSd: 1.1 cm (0.6 - 1.1) LVIDd: 3.3 cm (3.9 - 5.3) LVPWd: 1.5 cm (0.6 - 1.1) IVSs: 1.7 cm LVIDs: 1.8 cm LVPWs: 2.0 cm Ao Diam: 3.4 cm (2.0 - 3.7) AV Cusp: 1.8 cm (1.5 - 2.6) LA Diam: 3.0 cm (2.7 - 3.8) MV EXCURSION: 10.759 mm (> 18.000) MV EF SLOPE: 53 mm/s (70 - 150) EPSS: 0.9 cm MV E Viraj: 0.70 m/s MV DecT: 91 ms MV A Viraj: 0.88 m/s MV E/A Ratio: 0.80 RAP: 5.00 mmHg RVSP: 14.84 mmHg FINDINGS -------- This was a technically difficult study with suboptimal views. The left ventricular size is normal. There is mild concentric left ventricular hypertrophy. Overa ll left ventricular systolic function is low-normal with, an EF between 50 - 55 %. The right ventricle is normal in size. The left atrial size is normal. The right atrial size is normal. xx ml of Lumason was utilized for enhancement of images. Aortic valve is trileaflet and is mildly thickened. The mitral valve is normal. There is trace mitral regurgitation. The tricuspid valve appears structurally normal. Trace tricuspid regurgitation present. Right nishi tricular systolic pressure is normal at < 35 mmHg. There is no pulmonic regurgitation present. The aortic root size is normal. IVC Not well visulized. There is no pericardial effusion. CONCLUSIONS -------- 1. The left ventricular size is normal. 2. There is mild concentric left ventricular hypertrophy. 3. Overall left ventricular systolic function is low-normal with, an EF between 50 - 55 %. 4. Aortic valve is trileaflet and is mildly thickened. 5. There is trace mitral regurgitation. 6. Trace tricuspid regurgitation present. 7. There is no pericardial effusion. WIRE STITCHER MACHINE: Cailin Cifuentes RDCS
[2020-04-28 15:03] VITALS: BP 143/79; RESP 22; TEMP 97.8
--- NOTE | 2020-04-28 16:38 | ECHOS ---
STRESS ECHOCARDIOGRAM DATE OF SERVICE: 04/28/2020 LUMASON: n/a Vial INDICATIONS: Chest pain. MEDICATIONS: BASELINE HEART RATE: 94 BASELINE BLOOD PRESSURE: 106/76 MAXIMUM HEART RATE: 15 MAXIMUM BLOOD PRESSURE: 160/64 85% MPHR: 146 100% MPHR: 172 METS: 8.1 MAXIMUM STAGE REACHED: 2 TOTAL EXERCISE TIME: 6 minutes CLINICAL INFORMATION: STRESS DATA: Heart rate 94, pressure is 106/76 mmHg. Baseline EKG showed sinus mechanism. The patient exercised on the treadmill according to Luis protocol for a total of 6 minutes and achieved 8.1 METs. Max heart rate was 155, which is about 90% of maximum predicted heart rate. Maximum blood pressure was 160/64 mmHg. Clinically, the patient did not have any symptoms and the EKG did not show any significant ST or T- wave abnormalities concerning for ischemia. ECHOCARDIOGRAM IMAGES: On echocardiogram images from parasternal long axis view, parasternal short axis view, apical 4 chamber and apical 2 chambers were obtained as the baseline images, at the peak of the heart rate as well as on recovery. The echocardiogram images did not show any significant wall motion abnormalities concerning for ischemia. CONCLUSION: 1. Excellent exercise tolerance. 2. Normal EKG in response to exercise. 3. Normal echocardiogram in response to exercise. MMODL / IJN: [id number] /
== END 2020-04-28 13:27 ==
LOC: EC 21:02 → 6NMEDSUR 04-27 00:42
PROVIDERS: ADMIT Family Medicine; ATTEND Family Medicine
DX: R07.89 Other chest pain (principal); J98.11 Atelectasis; R07.81 Pleurodynia; R79.89 Other specified abnormal findings of blood chemistry; M79.661 Pain in right lower leg; I10 Essential (primary) hypertension; E78.5 Hyperlipidemia, unspecified; E78.00 Pure hypercholesterolemia, unspecified; G47.33 Obstructive sleep apnea (adult) (pediatric); R41.3 Other amnesia; N28.1 Cyst of kidney, acquired; G50.9 Disorder of trigeminal nerve, unspecified; F32.9 Major depressive disorder, single episode, unspecified; F41.0 Panic disorder [episodic paroxysmal anxiety]; F43.10 Post-traumatic stress disorder, unspecified; Z99.89 Dependence on other enabling machines and devices; E66.9 Obesity, unspecified; Z68.33 Body mass index [BMI] 33.0-33.9, adult; G89.29 Other chronic pain; M54.5 Low back pain; M54.6 Pain in thoracic spine; N28.9 Disorder of kidney and ureter, unspecified; Z79.899 Other long term (current) drug therapy; Z79.52 Long term (current) use of systemic steroids; Z79.1 Long term (current) use of non-steroidal anti-inflammatories (NSAID); Z88.1 Allergy status to other antibiotic agents; Z88.5 Allergy status to narcotic agent; Z88.8 Allergy status to other drugs, medicaments and biological substances; Z85.828 Personal history of other malignant neoplasm of skin; Z87.81 Personal history of (healed) traumatic fracture; Z87.39 Personal history of other diseases of the musculoskeletal system and connective tissue; Z83.3 Family history of diabetes mellitus; Z82.61 Family history of arthritis
CPT/HCPCS: 96376 ×2; 96375 ×2; 93005 ×2; 96361; 96374; 99285; 36415; 94760; 93306; 93351; 85379; 80061; 80053; 85652; 82550; 83735; 84484 ×2; 85025; 85610; 85730; 87635; 71045; 93971; 71275; G0378 ×2; J2270 ×2; J2930 ×2; J3360; S0106 ×2; J2405; J1885 ×2; J1170; Q9950; Q9967

== ENCOUNTER 2020-06-19 08:38 | Day surgery (SDC) | payer BC, OTHER ==
[2020-06-18 08:52] VITALS: BMI 31.8
[~2020-06-19 08:38] MED LIST: LACTATED RINGERS 1,000 ML IV SCH
[2020-06-19 08:58] VITALS: RESP 16; TEMP 97
[2020-06-19] MEDS ORDERED: PROPOFOL 10 MG/ML 20 ML VIAL IV ONE (09:32)
--- NOTE | 2020-06-19 10:00 | P.PCN ---
Date of Procedure: 06/19/20 Description of Procedure: BRIEF HISTORY: Patient is a 49-year-old male presenting for outpatient es ophagogastroduodenoscopy for evaluation of heartburn and GERD. Patient was seen in the GI clinic with symptoms complaints and started on Protonix. Currently he is taking the medicine nightly. Overall symptoms somewhat improved but still present. PROCEDURE PERFORMED: Esophagogastroduodenoscopy with biopsy. PREOPERATIVE DIAGNOSIS: Heartburn, GERD. ESTIMATED BLOOD LOSS: Minimal. IV sedation per anesthesia. PROCEDURE: After informed consent was obtained, the patient was brought into the endoscopy unit. IV sedation was administered by Anesthesia under continuous monitoring. Initially the Olympus GIF-190 video endoscope was inserted into the mouth. Esophagus intubated without any difficulty. It was gradually advanced into the stomach and duodenum and carefully examined. The bulb and the second part of the duodenum appeared normal, with biopsies taken. The scope at this time was withdrawn to the stomach, adequately insufflated with air, and upon careful examination, mucosa of the antrum, body, cardia and the fundus appeared normal, except for some mild punctate erythema in the antrum and body suggestive of mild gastritis with biopsies taken. The scope was then withdrawn into the esophagus. The GE junction was located at 39 cm from the incisors, with a small 1 cm hiatal hernia noted. Biopsies of lower esophagus taken. The esophagus appeared normal. There were no erosions or ulcerations seen and the patient tolerated the procedure well. IMPRESSION: 1. Mild gastritis. 2. Small hiatal hernia. 3. Biopsies of the duodenum, antrum body and lower esophagus. RECOMMENDATIONS: The findings of this examination were discussed with the patient and his family. Okay to resume diet. Okay to resume medications. Await pathology from biopsies. Follow up in the GI clinic as scheduled. Patient instructed to try taking Protonix prior to dinner for optimal usage medicine should be taken 30-60 minutes prior to eating. If still symptomatic patient can try [id number] Pepcid at night prior to bed.
[2020-06-19 10:28] VITALS: BP 113/89; PULSE 92
== END 2020-06-19 10:33 | disposition home or self-care (01) ==
LOC: ORWHC2ENDO 08:38
PROVIDERS: ATTEND Internal Medicine
DX: K20.0 Eosinophilic esophagitis (principal); K29.50 Unspecified chronic gastritis without bleeding; K44.9 Diaphragmatic hernia without obstruction or gangrene; I25.10 Atherosclerotic heart disease of native coronary artery without angina pectoris; I10 Essential (primary) hypertension; E78.5 Hyperlipidemia, unspecified; G47.33 Obstructive sleep apnea (adult) (pediatric); K21.9 Gastro-esophageal reflux disease without esophagitis; Z98.890 Other specified postprocedural states; Z79.899 Other long term (current) drug therapy; Z88.4 Allergy status to anesthetic agent; Z88.1 Allergy status to other antibiotic agents; Z88.8 Allergy status to other drugs, medicaments and biological substances
CPT/HCPCS: 88305; 43239; J2704

== ENCOUNTER → 2020-06-25 | Outpatient (CLI) | payer OTHER ==
--- NOTE | 2020-06-25 11:45 | CONS ---
CONSULTATION DATE OF SERVICE: 06/25/2020. This 49-year-old gentleman has been evaluated in the sleep center for possible obstructive sleep apnea-hypopnea syndrome. HISTORY OF PRESENT ILLNESS/SLEEP-WAKE EVALUATION: Patient's usual sleep schedule on weekdays from 7:30 to 9:30 p.m. until 7:50 a.m. On weekends from 930 to 11:30 p.m. until 10 or 11 a.m. The patient has problems with falling asleep, has TV set in bedroom. He usually sleeps on the side position with loud snoring, episodes of stopped breathing during sleep, choking, gasping for air. The patient wakes up from sleep 6 times with nocturia. Sometimes has positive history of hypnagogic hallucinations. No sleep paralysis or cataplexy. He may take 2 naps during the day at noon and at around 4:30. He does not feel refreshed after naps, does not seen vivid dreams during the naps. Presently, patient has been diagnosed with obstructive sleep apnea, was on treatment with CPAP, but stopped therapy around 2007. Positive history of narcolepsy according to patient's records. [place] Sleepiness Scale is in extremely high range of 21. PAST MEDICAL HISTORY: Positive for depression, hypertension, headaches, hyperlipidemia, . FAMILY HISTORY: Diabetes and lung cancer in his mother. Sister asthma. PAST SURGICAL HISTORY: Sinus surgery. MEDICATIONS: Tamsulosin 0.4 mg twice a day, metoprolol 25 mg twice a day, bupropion 150 mg 3 times a day, naproxen 500 mg twice a day, modafinil 200 mg 2 tablets a day, 100 mg twice a day, pantoprazole 40 mg once a day. SOCIAL HISTORY: Negative for smoking or using alcohol. REVIEW OF SYSTEMS: Multiple awakenings from sleep, sleepiness during the day, loud snoring. No fevers. No double vision. No recent chest pain. No shortness of breath. No abdominal pain. No bleeding episodes. No blood in the urine. No seizure episodes. PHYSICAL EXAMINATION: GENERAL: gentleman without distress. VITAL SIGNS: BP 132/89, HR 100, RR 18, height 5 feet 11 inches, weight 227.4, temperature is 97.8, O2 saturation on room air 95%. HEENT: PERRLA, EOMI. Oropharynx extremely low position of soft palate. Mallampati 4. NECK: Wide neck 18 inches in circumference. LUNGS: Clear to percussion and to auscultation. Good air exchange. No wheezing or rhonchi. HEART: S1, S2 regular. No murmurs, gallops, or rubs. ABDOMEN: Obese. EXTREMITIES: No clubbing or cyanosis. STUDIO OPERATOR: Awake, alert, and oriented X3. Cranial nerves 2 to 7 intact. There is no fasciculation or atrophy. noted. No focal deficits observed. IMPRESSION: 1. Loud snoring, multiple awakenings from sleep, extremely low position of soft palate, episodes of stopped breathing during sleep, wide neck 18 inches in circumference, sleepiness, history of obstructive sleep apnea in the past, obstructive sleep apnea-hypopnea syndrome. 2. Significant excessive daytime sleepiness. Redford Sleepiness Scale is 21, positive history of hypnagogic hallucinations. Differential diagnosis should include hypersomnia including narcolepsy. According to patient records, patient has history of narcolepsy, presently on treatment with modafinil 400 mg and continued to feel sleepiness. 3. Obesity, body mass index 31.6. 4. Hypertension. 5. Restless leg symptoms while falling asleep. 6. Questionable history of fibromyalgia. 7. History of sinus problems, status post sinus surgery. 8. Status post surgical treatment of basal cell carcinoma of the skin. 9. Acid reflux. 10.Depression. 11.Headaches. PLAN: 1. Polysomnography for evaluation of patient's breathing during sleep. 2. CPAP/BiPAP titration if sleep study confirms obstructive sleep apnea-hypopnea syndrome. 3. Preferable position during sleep on the side. 4. No driving if patient feels any sleepiness. 5. I will see patient for follow up visit to explain results of testing and following plan. 6. If necessary, patient may need multiple sleep latency test for objective evaluation of symptoms of sleepiness and any sleep onset REM periods. 7. To get results of the previous sleep studies. Thank you very much for referring this patient for consultation. Sincerely, Alonso Pal MD, PhD, FAASM Diplomat of [place] [employer] [place] [employer] Labor Specialist of [facility] [place] MMODL / IJN: [id number] /
== END | disposition home or self-care (01) ==
LOC: SLEEP 10:11
PROVIDERS: ATTEND Internal Medicine
DX: G47.33 Obstructive sleep apnea (adult) (pediatric) (principal); E66.9 Obesity, unspecified; I10 Essential (primary) hypertension; G47.8 Other sleep disorders; K21.9 Gastro-esophageal reflux disease without esophagitis; F32.9 Major depressive disorder, single episode, unspecified; R51.9 Headache, unspecified; Z86.69 Personal history of other diseases of the nervous system and sense organs; Z68.31 Body mass index [BMI] 31.0-31.9, adult; Z85.828 Personal history of other malignant neoplasm of skin
CPT/HCPCS: 99211

== ENCOUNTER → 2020-07-23 | Outpatient (CLI) | payer OTHER ==
--- NOTE | 2020-07-23 10:37 | US ---
EXAMINATION TYPE: US gallbladder DATE OF EXAM: 07/23/2020 COMPARISON: 11/07/2017 CLINICAL HISTORY: R10.13 Epigastric Pain EXAM MEASUREMENTS: Liver Length: 13.4 cm Gallbladder Wall: 0.3 cm CBD: not identified Right Kidney: 10.9 x 6.1 x 5.0 cm Technically difficult due to extensive midline bowel gas. Pancreas: Obscured by bowel gas Liver: limited visualization to intercostal window, visualized portions wnl. Gallbladder: No stones seen Evidence for sonographic Fernandez's sign: No CBD: not identified Right Kidney: Exophytic cyst measures 1.2 x 1.2 x 1.0 cm no hydronephrosis or shadowing renal calcul i. IMPRESSION: 1. Midline abdominal gas causes suboptimal evaluation. The pancreas is obscured by overlying bowel ga s. The liver is limited in evaluation due to overlying bowel gas. The common duct is not identified. 2. Right renal cyst measuring 1.2 cm. 3. No gallstones.
== END | disposition home or self-care (01) ==
LOC: RADUSWWP 09:49
PROVIDERS: ATTEND Internal Medicine Gastroenterology
DX: N28.1 Cyst of kidney, acquired (principal)
CPT/HCPCS: 76705

== ENCOUNTER 2020-10-31 10:47 | Day surgery (SDC) | payer OTHER ==
[2020-10-29 13:13] VITALS: BMI 32.4
[2020-10-31] MEDS ORDERED: LIDOCAINE 1% (10MG/ML) FOR IV START INTRADERMA ONE (11:16)
[2020-10-31 11:18] VITALS: TEMP 97.4
[2020-10-31] MEDS ORDERED: PROPOFOL 10 MG/ML 20 ML VIAL IV ONE (12:07)
[2020-10-31] MEDS ORDERED: LIDOCAINE 1% INJ 10MG/ML (20 ML MDV) ONE (12:07)
--- NOTE | 2020-10-31 12:37 | P.PCN ---
Date of Procedure: 10/31/20 Procedure(s) Performed: BRIEF HISTORY: Patient is a 50-year-old pleasant male scheduled for an elective colonoscopy as a part of screening for colorectal neoplasia. PROCEDURE PERFORMED: Colonoscopy with snare polypectomy. PREOPERATIVE DIAGNOSIS: Screening for colon cancer. IV sedation per Anesthesia. PROCEDURE: After informed consent was obtained, the patient, was brought into the endoscopy unit. IV sedation was administered by Anesthesia under continuous monitoring. Digital rectal examination was normal. Initially the Olympus CF-160 flexible video colonoscope was then inserted in the rectum, gradually advanced into the cecum without any difficulty. Careful examination was performed as the scope was gradually being withdrawn. Ileocecal valve and the appendiceal orifice were visualized and appeared normal. Prep was excellent. Mucosa of the cecum, ascending colon, appeared normal. In the transverse colon there was a 3 mm polyp that was removed by snare polypectomy. Rest of the transverse colon, descending colon appeared normal. The sigmoid colon there was a 1 cm pedunculated polyp removed by snare polypectomy. Rest of the, sigmoid colon, and rectum appeared normal. Retroflexion was performed in the rectum and no lesions were seen. The patient tolerated the procedure well. IMPRESSION: 3 mm transverse colon polyp status post polypectomy 1 cm; sigmoid polyp status post polypectomy RECOMMENDATIONS: Findings of this examination were discussed with the patient as his family. He was advised to follow with the biopsy results. If the biopsy reveals adenoma he can have a repeat colonoscopy in 3-5 years..
[2020-10-31 12:43] VITALS: RESP 16
[2020-10-31 13:09] VITALS: BP 137/99; PULSE 83
== END 2020-10-31 13:50 | disposition home or self-care (01) ==
LOC: ORWHC2ENDO 10:47
PROVIDERS: ATTEND Internal Medicine Gastroenterology
DX: Z12.11 Encounter for screening for malignant neoplasm of colon (principal); D12.5 Benign neoplasm of sigmoid colon; D12.3 Benign neoplasm of transverse colon; I20.8 Other forms of angina pectoris; I10 Essential (primary) hypertension; E78.5 Hyperlipidemia, unspecified; G47.33 Obstructive sleep apnea (adult) (pediatric); F41.9 Anxiety disorder, unspecified; F43.10 Post-traumatic stress disorder, unspecified; K21.9 Gastro-esophageal reflux disease without esophagitis; Z79.899 Other long term (current) drug therapy
CPT/HCPCS: 45385; 88305; J2001; J2704

== ENCOUNTER → 2020-11-17 | Outpatient (CLI) | payer OTHER ==
--- NOTE | 2020-11-17 14:20 | CT ---
EXAMINATION TYPE: CT chest wo con DATE OF EXAM: 11/17/2020 COMPARISON: 04/26/2020 HISTORY: 50-year-old male R05. Cough, I10 Essential (primary) hypertension TECHNIQUE: Contiguous axial scanning of the chest without IV contrast. Coronal and sagittal reconstru ctions performed. CT DLP: 574.0 mGycm Automated exposure control for dose reduction was used. FINDINGS: Heart normal size without pericardial effusion. Mild aneurysm aortic root at 4.1 cm versus 3.9 cm on 04/26/2020. Likely some differences due to noncon trast technique presently. Ectatic ascending aorta at 3.9 cm. And the charge was a branching anatomy. No thoracic lymph adenopathy by CT size criteria. There is bilateral gynecomastia. No consolidation or pleural effusion. Minimal strandy lower lung atelectasis. Small hiatal hernia. Exophytic hypodense lesion lateral midpole right kidney measures 1.3 cm, likely cyst. Spleen upper li mits of normal in size at 13.0 cm on axial series. Anterior splenule. Bones: Mild degenerative disc disease midthoracic spine. IMPRESSION: 1. MILD ANEURYSM AORTIC ROOT AT 4.1 CM. ASCENDING AORTA ECTATIC AT 3.9 CM. 2. NO ACUTE PULMONARY PROCESS. 3. SMALL HIATAL HERNIA.
== END | disposition home or self-care (01) ==
LOC: RADCTMAIN 12:24
PROVIDERS: ATTEND Internal Medicine Pulmonary Disease
DX: I71.2 Thoracic aortic aneurysm, without rupture (principal); K44.9 Diaphragmatic hernia without obstruction or gangrene
CPT/HCPCS: 71250

== ENCOUNTER → 2021-08-13 | Outpatient (CLI) | payer OTHER ==
--- NOTE | 2021-08-13 16:38 | P.PN ---
Subjective DATE: [] FOLLOW UP VISIT. Patient with obstructive sleep apnea hypopnea syndrome return to sleep center for follow-up visit. Recently patient had sleep study which documented obstructive sleep apnea hypopnea syndrome. Patient was initiated on PAP therapy and today is first visit after treatment was started. Patient was able to use PAP equipment every night for the whole night. The patient does not have significant problems with the mask and humidification. In the morning patient feels discomfort in his ears. [place] sleepiness scale is 11. I checked information from PAP unit. PAP unit pressure 8-16 cm H2O. Usage is every night, last night at 11 hours. Apnea Hypopnea Index is 2 during the last night, which is normal. MEDICATIONS:1. Bupropion 450 mg once a day 2. Cetirizine 20 mg once a day 3. Metoprolol 50 mg once a day 4. Fluticasone twice a day 5. Pravastatin 80 mg once a day 6., Tamsulosin in 0.8 mg During physical exam: GENERAL: A pleasant patient without any distress. VITAL SIGNS: BP 119/78, HR 74, RR 18, weight 260.2, temperature 97.5, oxygen saturation at room air 92. HEENT: PERRLA, EOMI.low position of soft palate, Mallapati 4. NECK: Supple. No JVD. LUNGS: Clear to percussion and to auscultation. Good air exchange. No wheezing or rhonchi. HEART: S1, S2 regular. ABDOMEN: Soft and nontender. Obese EXTREMITIES: No clubbing or cyanosis. AUTOMATION QA LEAD: Awake, alert, and oriented x3. No focal deficit. Impressions: 1. Obstructive sleep apnea-hypopnea syndrome. Patient demonstrated great compliance with treatment, benefiting from treatment. Patient experiencing discomfort in his ears in the morning after using BiPAP treatment, possibly side effect of Pap therapy 2. Obesity. 3. Hypertension. 4. History of fibromyalgia. 5. History of cyanosis problems, status post sinus surgery.. 6. Status post surgical treatment of basal cell carcinoma over the skin. 7. Acid reflux. 8. Depression. 9. History of headaches. Plan: 1. Continue using PAP equipment every night for the whole night. 2. To change air filter at least 1-2 times per month. 3. PAP unit should stay lower then position of the head. 4. Advised patient to remove all remaining water from humidifier canister daily and make it dry after each usage. Refill canister with fresh distilled water before each usage. 5. Sleep hygiene with regular time in bed for at least 8 hours. 6. Precautions related to driving. No driving if feel any sleepiness. 7. I will maintain prescription for PAP supplies including mask, tube, filters. 8. Follow up visit in 6 months or earlier if patient has any problems. 9. Watching weight. Thank you very much for allowing me to participate in the management of your patient. Alonso Pal MD, PhD, FAASM. Diplomat of [place] [employer], Sleep Medicine Board by [place] [employer] Senior Bi Architect of [facility] [place]
--- NOTE | 2021-08-13 21:52 | SFUN ---
SLEEP CENTER FOLLOW UP NOTE ADDENDUM: To plan: I reduced pressure in the PAP unit to the range of 8-13 cm of water. MMODL / IJN: [id number] /
== END ==
LOC: SLEEP 14:09
PROVIDERS: ATTEND Internal Medicine
DX: G47.33 Obstructive sleep apnea (adult) (pediatric) (principal); Z87.39 Personal history of other diseases of the musculoskeletal system and connective tissue; E66.9 Obesity, unspecified; Z98.890 Other specified postprocedural states; I10 Essential (primary) hypertension; K21.9 Gastro-esophageal reflux disease without esophagitis; F32.A Depression, unspecified; Z99.89 Dependence on other enabling machines and devices; Z79.899 Other long term (current) drug therapy; Z88.5 Allergy status to narcotic agent; Z88.1 Allergy status to other antibiotic agents; Z88.8 Allergy status to other drugs, medicaments and biological substances

== ENCOUNTER → 2022-12-27 | Outpatient (CLI) | payer OTHER ==
--- NOTE | 2022-12-27 08:51 | US ---
EXAMINATION TYPE: US kidneys/renal and bladder DATE OF EXAM: 12/27/2022 COMPARISON: Renal 2018 CLINICAL INDICATION: Male, 52 years old with history of R94.4 ABNORMAL RESULTS OF KIDNEY FUNCTION GLORIA DIES; EXAM MEASUREMENTS: Right Kidney: 10.0 x 5.6 x 5.5 cm Left Kidney: 12.1 x 6.0 x 5.3 cm Post Void Residual Volume: 230 mL Right Kidney: Two small cystic areas; largest measuring 1.2 x 1.0 x 1.1 cm Left Kidney: Dromedary hump again noted Bladder: Debris noted Bilateral Jets seen: yes Normal Post Void Residual: no There is no evidence for hydronephrosis at this point in time. No nephrolithiasis is seen. No saad s are identified. The urinary bladder is anechoic. Bilateral ureteral jets are seen. IMPRESSION: 1. No evidence for obstructive uropathy. 2. Cortical medullary differentiation is maintained. 3. Simple appearing renal cysts.
== END | disposition home or self-care (01) ==
LOC: RADUSWWP 08:10
DX: N28.1 Cyst of kidney, acquired (principal); R94.4 Abnormal results of kidney function studies
CPT/HCPCS: 76770

== ENCOUNTER → 2022-12-27 | Outpatient (CLI) | payer OTHER ==
--- NOTE | 2022-12-27 08:56 | CT ---
EXAMINATION TYPE: CT chest wo con CT DLP: 448.5 mGycm, Automated exposure control for dose reduction was used. DATE OF EXAM: 12/27/2022 8:51 AM COMPARISON: CT chest 11/17/2020, CTA chest 04/26/2020 CLINICAL INDICATION:Male, 52 years old with history of I71.20 THORACIC AORTIC ANEURYSM WITHOUT RUPTUR E; PHH, Thoracic aortic aneurysm TECHNIQUE: Multiple axial images were obtained through the chest without IV contrast. Lack of IV or o ral contrast limits evaluation of solid and hollow organ viscera. . Coronal and sagittal reformats re viewed. FINDINGS: LUNGS/ PLEURA: No pleural effusion, pneumothorax, focal consolidation. No suspicious pulmonary nodule or mass. AIRWAY: Patent and unremarkable.. HEART: Size within normal limits. No pericardial effusion. MEDIASTINUM: No gross evidence of adenopathy. VASCULATURE: Stable mild aneurysmal aortic root dilatation of 4.0 cm, previously 4.1 cm. Stable ecta tic dilatation of the thoracic aorta measures up to 3.9 cm. Descending thoracic aorta measures up to 2.7 cm. MUSCULOSKELETAL: No acute osseous abnormalities. Mild degenerative changes of the thoracic spine. SOFT TISSUES/LYMPH NODES: Unremarkable. LOWER NECK: No significant findings. UPPER ABDOMEN: No significant findings. IMPRESSION: 1. No acute thoracic process. 2. Stable aneurysmal dilatation of the aortic root measuring 4.0 cm and ascending aortic ectasia bradley uring 3.9 cm.
== END | disposition home or self-care (01) ==
LOC: RADCTMAIN 08:07
DX: I71.20 Thoracic aortic aneurysm, without rupture, unspecified (principal)
CPT/HCPCS: 71250

== ENCOUNTER → 2024-02-08 | Outpatient (CLI) | payer OTHER ==
--- NOTE | 2024-02-08 10:59 | MR ---
INDICATION: Patient age:Male; 53 years old; Reason for study: M54.59 LOW BACK PAIN; PHH. COMPARISONS: CT lumbar spine 01/18/2017, MRI lumbar spine 01/20/2015. TECHNIQUE: Multi planar, multi sequence imaging was performed utilizing: T1-weighted, T2-weighted, a nd turbo inversion recovery imaging of the lumbar spine. The patient was not given contrast. FINDINGS: The lumbar vertebral bodies do have preserved heights. Grade 1 anterolisthesis of L4-L5 wi thout definitive pars defects. This is new from prior 2017. Minimal multilevel disc desiccation is pr esent. Edema surrounding the L4-L5 facet joints bilaterally. The conus medullaris and the distal spin al cord do appear unremarkable with regards to their signal intensity and morphology. T12-L1: No significant disc pathology. No central canal or neural foraminal stenosis. L1-L2: Broad-based disc bulge with bilateral facet arthropathy. Mild central canal stenosis. No sign ificant neural foraminal stenosis. L2-L3: Broad-based disc bulge with bilateral facet arthropathy and ligamentum flavum buckling. Mild central canal stenosis. There is mild bilateral neural foraminal stenosis. L3-L4: Broad-based disc bulge with bilateral facet arthropathy. Mild central canal stenosis. There i s mild bilateral neural foraminal stenosis. L4-L5: Grade 1 anterolisthesis with uncovering of the disc. Broad-based disc bulge with tiny annular fissure on the posterior aspect of the disc. Broad-based disc bulge identified. Ligamenta flavum buc dayna with bilateral facet arthropathy and surrounding edema within the tissues around the facet join ts. Mild central canal stenosis. There is moderate bilateral neural foraminal stenosis with right gre ater than left. There is a 9 mm synovial cyst posterior to the right L4-L5 facet joint. L5-S1: The intervertebral disc appears round on its contour posteriorly without significant mass eff ect upon the thecal sac. Facet joints are enlarged. Neural canals do remain patent. Other significant findings: None. IMPRESSION: 1. Multilevel disc degeneration with associated osteoarthritic changes as described above. 2. Grade 1 anterolisthesis of L4 on L5 which is new from prior CT 2017. No pars defects. There is ed blake around both facet joints with a synovial cyst posterior to the right L4-L5 facet joint. [facility], , 02/08/2024 10:57 AM
--- NOTE | 2024-02-08 23:41 | MR ---
EXAMINATION TYPE: MR shoulder LT wo con DATE OF EXAM: 02/08/2024 7:21 AM COMPARISON: None. CLINICAL INDICATION: Male, 53 years old with history of M25.512 L SHOULDER PAIN, Left shoulder pain, decreased ROM. Hx skin cancer with graft left shoulder. IV Contrast: cc (None if empty) TECHNIQUE: Multiplanar, multisequence imaging of the left shoulder is performed without contrast. FINDINGS: Rotator Cuff: Some increased signal in the supraspinatus and infraspinatus tendons. Heterogeneous sub scapularis tendon with surrounding fluid. Rotator cuff muscular bulk is preserved. Acromioclavicular Joint: [id number] narrowing and capsular hypertrophy. No significant spurring . Glenohumeral Joint: Small to moderate sized joint effusion. Narrowing is present. No significant spur ring. Labrum: Heterogeneous increased signal superior labrum likely reflects degenerative tear. Biceps Tendon: The long head of biceps is in normal location within bicipital groove. Intracapsular p ortion shows increased signal and thickening. Bone marrow signal: Subchondral cystic change in the osseous glenoid coronal image 15. Other: No additional significant abnormality is appreciated. IMPRESSION: 1. Some tendinosis of the rotator cuff tendons as detailed above. 2. Superior labral tear may be degenerative in etiology. 3. [id number]-ag-[id number] degenerative changes are present as detailed above. 4. Tendinosis of the intracapsular portion long head of biceps tendon. [facility], , 02/08/2024 11:39 PM
== END | disposition home or self-care (01) ==
LOC: RADMRIMAIN 06:28
PROVIDERS: ATTEND Family Medicine
DX: M51.360 Other intervertebral disc degeneration, lumbar region with discogenic back pain only (principal); M43.16 Spondylolisthesis, lumbar region; R60.0 Localized edema; M67.814 Other specified disorders of tendon, left shoulder; M19.012 Primary osteoarthritis, left shoulder
CPT/HCPCS: 72148

== ENCOUNTER 2024-04-27 09:49 | Day surgery (SDC) | payer OTHER ==
[2024-04-27 10:06] VITALS: TEMP 97.8
[2024-04-27 10:20] LABS: Glucose,Whole Blood 100 mg/dL (70-110)
[2024-04-27] MEDS ORDERED: IOPAMIDOL M200 10 ML VIAL ONE (10:25)
[2024-04-27] MEDS ORDERED: methylPREDNISolone ACETATE 80 MG/ML 1 ML VIAL ONE (10:25)
--- NOTE | 2024-04-27 10:35 | P.PCN ---
Date of Procedure: 04/27/24 Procedure(s) Performed: PREOPERATIVE DIAGNOSIS: 1- Lumbar Degenerative Disc Diseases 2-Lumbar spondylosis with Facet arthropathy without myelopathy. 3-lumbar spinal stenosis. 4-lumbar radiculopathy. POSTOPERATIVE DIAGNOSIS: 1-lumbar degenerative disc disease. 2-lumbar spondylosis with facet arthropathy without myelopathy. 3-lumbar spinal stenosis. 4-lumbar radiculopathy PROCEDURE 1. Lumbar epidural steroid injection under fluoroscopic guidance at the L4-5 level. (Fluoroscopy imaging was available in radiology department) 2. Lumbar epidurogram. ANESTHESIA: Lidocaine 1% 3 and then only. EBL: Minimal PROCEDURE INDICATION: The patient with low back pain and radiculitis symptoms unresponsive to conservative treatment. Fluoroscopy was used to optimize visualization of the needle placement and to maximize safety. PROCEDURE DESCRIPTION / TECHNIQUE: The patient was seen and identified in the preoperative area. Risks, benefits, complications including but not limited to infections ,bleeding ,allergic reaction to the medications ,nerve damage and not complete pain releife , and alternatives were discussed with the patient. The patient agreed to proceed with the procedure and signed the consent, and vital signs were stable. Patient was taken to the OR and time out was completed. The patient was placed in the prone position on procedure table and a pillow was placed under the abdomen to reduce lumbar lordosis. The lumbosacral area was prepped and draped in the usual sterile fashion.ere closely monitored during the procedure. Vital signs was monitered during the entire procedure. Using anterior-posterior fluoroscopy, the L4-5 interlaminar space was identified and the skin over this site was marked and then infiltrated with 1% lidocaine subcutaneously. Subsequently, a 20-gauge Tuohy epidural needle was inserted and advanced toward the epidural space ( Right paramedial ) using the ``Loss of resistance technique and guided by AP and lateral fluoroscopy. The correct needle position in the epidural space was verified with the injection of 2 mL of the water soluble contrast dye Isovue 200 contrast and observing an excellent epidurogram with the epidural spread of the dye, after negative aspiration for blood and CSF and in the absence of paresthesias. Again after negative aspiration, a 6 ml mixture containing 80 mg of Depo-medrol ( Preservetive Free ), and 2 ml of preservative free Normal Saline, and 2 ml of preservative free lidocaine 1% solution was injected and a washout of epidurogram was seen. Needle was withdrawn intact, skin was cleansed, and bandages were applied. COMPLICATIONS: None DISPOSITION / PLANS: The patient was placed in a supine position and transferred to the recovery area in a stable condition for observation. There was no evidence of lower extremity motor or sensory deficit after the procedure. Patient was discharged from the recovery room after meeting discharge criteria. Home discharge instructions were given to the patient by the staff. The patient was reexamined prior to discharge. The patient will schedule a follow up in the clinic in 2-4 weeks.
[2024-04-27] MEDS ORDERED: LACTATED RINGERS 1,000 ML IV SCH (10:39)
[2024-04-27 10:53] VITALS: BP 119/76; PULSE 82; RESP 16
--- NOTE | 2024-04-27 11:01 | FL ---
Fluoroscopy INDICATION: Pain FINDINGS: Fluoroscopy time: 1.9 seconds Total dose area product (DAP) in uGy*m?, mGy*cm? (or similar): 0.60302 Images obtained: 2. Images document needle directed towards the lumbar spine IMPRESSION: 1. Documentation of fluoroscopy. [facility], , 04/27/2024 10:59 AM
== END 2024-04-27 11:05 | disposition home or self-care (01) ==
LOC: ORPAIN 09:49
PROVIDERS: ATTEND Specialist
DX: M47.26 Other spondylosis with radiculopathy, lumbar region (principal); M48.061 Spinal stenosis, lumbar region without neurogenic claudication; M51.16 Intervertebral disc disorders with radiculopathy, lumbar region; Z79.1 Long term (current) use of non-steroidal anti-inflammatories (NSAID); Z79.899 Other long term (current) drug therapy; Z88.8 Allergy status to other drugs, medicaments and biological substances; Z88.5 Allergy status to narcotic agent
CPT/HCPCS: 62323; Q9966; J1010

== ENCOUNTER 2024-05-03 11:49 | Emergency (ER) | payer OTHER ==
[2024-05-03 11:54] VITALS: TEMP 98.1
--- NOTE | 2024-05-03 12:22 | ED ---
General Adult HPI - General Chief complaint: Back Pain/Injury Stated complaint: Abn labs Time Seen by Provider: 05/03/24 12:04 Source: patient Mode of arrival: wheelchair Limitations: no limitations - History of Present Illness Initial comments: Dictation was produced using [employer] dictation software. please excuse any grammatical, word or spelling errors. Chief Complaint: 53-year-old male presents emergency department acute on chronic back pain History of Present Illness: Patient is a 53-year-old male who presents to the emergency department with chronic back pain. Patient has had pain in his back since July of last year. States that he been seen by pain specialist along with medicaid collection specialist. On Tuesday he had paraspinal injections. States that they did not help. On Tuesday he was changing directions in order to avoid a collision with his coworker when all of a sudden he felt a twinge in his back. States that since then he has been having sharp right lower back pain that radiates down the lateral right thigh. Denies any fever, chills or night sweats. No loss of bowel or bladder control. Denies any saddle anesthesia. The ROS documented in this emergency department record has been reviewed and confirmed by me. Those systems with pertinent positive or negative responses have been documented in the HPI. All other systems are other negative and/or noncontributory. - Related Data Home Medications Medication Instructions Recorded Confirmed Naproxen 500 mg PO BID PRN 03/29/14 05/03/24 Tamsulosin HCl [Flomax] 0.4 mg PO DAILY 04/27/20 05/03/24 Celecoxib [CeleBREX] 200 mg PO DAILY 04/25/24 05/03/24 Gabapentin [Neurontin] 400 mg PO TID 04/25/24 05/03/24 Testosterone Cypionate 200 mg IM Q14D 04/25/24 05/03/24 [Depo-Testosterone] Cyclobenzaprine [Flexeril] 10 mg PO HS 05/03/24 05/03/24 traMADol HCL 50 mg PO Q6H PRN 05/03/24 05/03/24 Previous Rx's Medication Instructions Recorded HYDROcodone/APAP 5-325MG [Leslie 1 tab PO Q6HR PRN 3 Days #12 tab 05/03/24 5-325] Allergies Allergy/AdvReac Type Severity Reaction Status Date / Time fentanyl Allergy Rash/Hives Verified 05/03/24 12:21 moxifloxacin HCl Allergy Anaphylaxis Verified 05/03/24 12:21 [From Avelox] duloxetine HCl AdvReac Nausea & Verified 05/03/24 12:21 [From Cymbalta] Vomiting Review of Systems ROS Statement: Those systems with pertinent positive or pertinent negative responses have been documented in the HPI. ROS Other: All systems not noted in ROS Statement are negative. Past Medical History Past Medical History: Cancer, Chest Pain / Angina, Hyperlipidemia, Hypertension, Memory Impairment, Musculoskeletal Disorder, Neurologic Disorder, Prostate Disorder, Rheumatoid Arthritis (RA), Sleep Apnea/CPAP/BIPAP Additional Past Medical History / Comment(s): cyst on one kidney, hx severe dizzy spells, cancer --skin cancer x2, trigeminal nerve damage, back pain, wears cpap. occasional rapid heart rate. current hearing loss to left ear being tx with dose pack. bph. no meds for BP or cholesterol at this time. some short term memory loss,focus issues,comprehension per pt History of Any Multi-Drug Resistant Organisms: None Reported Additional Past Surgical History / Comment(s): sinus surgery x3, skin cancer re moval, orbital fracture repair, egd Past Anesthesia/Blood Transfusion Reactions: No Reported Reaction Past Psychological History: Anxiety, Depression, Panic Disorder, PTSD Smoking Status: Never smoker - Past Family History Mother Family Medical History: Diabetes Mellitus, Rheumatoid Arthritis (RA) General Exam - General Exam Comments Initial Comments: PHYSICAL EXAM: General Impression: Alert and oriented x3, distress HEENT: Normocephalic atraumatic, extra-ocular movements intact, pupils equal and reactive to light bilaterally, mucous membranes moist. Cardiovascular: Heart regular rate and rhythm Chest: Able to complete full sentences, no retractions, no tachypnea Abdomen: abdomen soft, non-tender, non-distended, no organomegaly Musculoskeletal: Pulses present and equal in all extremities, no peripheral edema Motor: no focal deficits noted Neurological: CN II-XII grossly intact, no focal motor or sensory deficits noted Skin: Intact with no visualized rashes Psych: Normal affect and mood Limitations: no limitations Course Vital Signs 05/03/24 05/03/24 11:52 13:10 Temperature 98.1 F Pulse Rate 149 H 130 H Respiratory 26 H 20 Rate Blood Pressure 171/102 170/83 O2 Sat by Pulse 98 93 L Oximetry Medical Decision Making - Medical Decision Making Was pt. sent in by a medical professional or institution (, PA, DRONE SOFTWARE DEVELOPMENT ENGINEER, urgent care, hospital, or residential...) When possible be specific @ -No Did you speak to anyone other than the patient for history (EMS, parent, family, police, friend...)? What history was obtained from this source @ -No Did you review nursing and triage notes (agree or disagree)? Why? @ -I reviewed and agree with nursing and triage notes Were old charts reviewed (outside hosp., previous admission, EMS record, old EKG, old radiological studies, urgent care reports/EKG's, residential records)? Report findings @ -No old charts were reviewed Differential Diagnosis (chest pain, altered mental status, abdominal pain women, abdominal pain men, vaginal bleeding, musculoskeletal, weakness, fever, dyspnea, syncope, headache, dizziness, GI bleed, back pain, seizure, CVA, palpatations, mental health)? @ -Differential Back Pain: Strain, zoster, cauda equina syndrome, epidural abscess, vertebral osteomyeli tis, discitis, fracture, subluxation, disc herniation, DJD, spinal stenosis, dissection, AAA, pancreatitis, peptic ulcer disease, pyelonephritis, kidney stone, this is not meant to be an all-inclusive list. EKG interpreted by me (3pts min.). @ -None done X-rays interpreted by me (1pt min.). @ -None done CT interpreted by me (1pt min.). @ -None done U/S interpreted by me (1pt. min.). @ -None done What testing was considered but not performed or refused? (CT, X-rays, U/S, labs)? Why? @ -None What meds were considered but not given or refused? Why? @ -None Was smoking cessation discussed for >3mins.? @ -No Were there social determinants of health that impacted care today? How? (Homelessness, low income, unemployed, alcoholism, drug addiction, transportation, low edu. Level, literacy, decrease access to med. care, fci, rehab)? @ -No Was there de-escalation of care discussed even if they declined (Discuss DNR or withdrawal of care, Hospice)? DNR status @ -No What co-morbidities impacted this encounter? (DM, HTN, Smoking, COPD, CAD, Cancer, CVA, ARF, Chemo, Hep., AIDS, mental health diagnosis, sleep apnea, morbid obesity)? @ -Degenerative back disease Was patient admitted / discharged? Hospital course, mention meds given and route, prescriptions, significant lab abnormalities, going to OR and other pertinent info. @ -53-year-old male with acute on chronic lower back pain. Patient has been managed by outpatient spine and pain management. Vital signs stable. Patient h as no high risk features. Vital signs upon arrival are within acceptable limits. Laboratory evaluation is unremarkable. Patient given analgesics with improvement of symptoms. Disposition options were discussed patient agreeable discharge follow-up with a medicaid collection specialist. Did you discuss the management of the patient with other professionals (professionals i.e. , PA, DRONE SOFTWARE DEVELOPMENT ENGINEER, lab, RT, psych nurse, drug abuse social worker, ear mold laboratory technician, teacher, environmental conservation officer, shoe caser)? Give summary @ -No Was critical care preformed (if so, how long)? @ -No Undiagnosed new problem with uncertain prognosis? @ -No Drug Therapy requiring intensive monitoring for toxicity (Heparin, Nitro, Insulin, Cardizem)? @ -No Were any procedures done? @ -No Diagnosis/symptom? Acute, or Chronic, or Acute on Chronic? Uncomplicated (without systemic symptoms) or Complicated (systemic symptoms)? @ -Acute on chronic back pain Side effects of treatment? @ -No Exacerbation, Progression, or Severe Exacerbation? @ -No Poses a threat to life or bodily function? How? (Chest pain, USA, OR, pneumonia, PE, COPD, DKA, ARF, appy, cholecystitis, CVA, Diverticulitis, Homicidal, Suicidal, threat to staff... and all critical care pts) @ -yes - Lab Data Result diagrams: 05/03/24 12:45 05/03/24 12:45 Lab Results 05/03/24 05/03/24 Range/Units 12:45 12:45 WBC 8.3 (3.8-10.6) k/uL RBC 5.57 (4.30-5.90) m/uL Hgb 16.9 (13.0-17.5) gm/dL Hct 52.0 (39.0-53.0) % MCV 93.4 (80.0-100.0) fL MCH 30.3 (25.0-35.0) pg MCHC 32.5 (31.0-37.0) g/dL RDW 15.2 (11.5-15.5) % Plt Count 174 (150-450) k/uL MPV 7.9 Neutrophils % 83 % Lymphocytes % 11 % Monocytes % 5 % Eosinophils % 1 % Basophils % 0 % Neutrophils # 6.8 (1.3-7.7) k/uL Lymphocytes # 0.9 L (1.0-4.8) k/uL Monocytes # 0.4 (0-1.0) k/uL Eosinophils # 0.0 (0-0.7) k/uL Basophils # 0.0 (0-0.2) k/uL Sodium 138 (137-145) mmol/L Potassium 4.4 (3.5-5.1) mmol/L Chloride 102 (98-107) mmol/L Carbon Dioxide 21 L (22-30) mmol/L Anion Gap 15 mmol/L BUN 30 H (9-20) mg/dL Creatinine 0.96 (0.66-1.25) mg/dL Est GFR (CKD-EPI)AfAm >90 (>60 ml/min/1.73 sqM) Est GFR (CKD-EPI)NonAf >90 (>60 ml/min/1.73 sqM) Glucose 95 (74-99) mg/dL Calcium 9.7 (8.4-10.2) mg/dL Disposition Clinical Impression: Chronic back pain Disposition: HOME SELF-CARE Condition: Fair Instructions (If sedation given, give patient instructions): Acute Low Back Pain (ED) Prescriptions: HYDROcodone/APAP 5-325MG [Leslie 5-325] 1 tab PO Q6HR PRN 3 Days #12 tab PRN Reason: Severe Pain Is patient prescribed a controlled substance at d/c from ED?: Yes If prescribed controlled substance>3 days was MAPS reviewed?: Prescribed <3 Days Referrals: Neal Arredondo MD [Primary Care Provider] - 1-2 days Time of Disposition: 13:56
[2024-05-03] MEDS: HYDROmorphone 1 MG/ML 1 ML SYRINGE IVP STA ×2 (12:46→14:08)
[2024-05-03 13:08] LABS: Basophils % (A) 0 %; Eosinophils % (A) 1 %; HGB 16.9 gm/dL (13.0-17.5); Lymphocytes # (A) 0.9 k/uL (1.0-4.8); Lymphocytes % (A) 11 %; MCH 30.3 pg (25.0-35.0); MCHC 32.5 g/dL (31.0-37.0); MCV 93.4 fL (80.0-100.0); Mean Platelet Volume 7.9; Monocytes # (A) 0.4 k/uL (0-1.0); Monocytes % (A) 5 %; Neutrophils # (A) 6.8 k/uL (1.3-7.7); Neutrophils % (A) 83 %; Platelet Count 174 k/uL (150-450); RBC 5.57 m/uL (4.30-5.90); RDW 15.2 % (11.5-15.5); WBC 8.3 k/uL (3.8-10.6)
[2024-05-03 13:20] LABS: African American GFR (CKD) >90 (>60 ml/min/1.73 sqM); Anion Gap 15 mmol/L; Blood Urea Nitrogen 30 mg/dL (9-20); Calcium 9.7 mg/dL (8.4-10.2); Carbon Dioxide 21 mmol/L (22-30); Chloride 102 mmol/L (98-107); Glucose 95 mg/dL (74-99); Non-African American GFR(CKD) >90 (>60 ml/min/1.73 sqM); Sodium 138 mmol/L (137-145)
[2024-05-03 13:25] LABS: Potassium 4.4 mmol/L (3.5-5.1)
[2024-05-03 14:56] VITALS: BP 138/87; PULSE 113; RESP 20
== END 2024-05-03 15:09 | disposition home or self-care (01) ==
LOC: EC 11:49
DX: G89.29 Other chronic pain (principal); M54.50 Low back pain, unspecified
CPT/HCPCS: 36415; 80048; 85025; 99284; 96374; 96376; J1171

== ENCOUNTER → 2024-05-03 | Outpatient (CLI) | payer OTHER ==
[2024-05-03 12:28] VITALS: BP 159/109; PULSE 159; RESP 16
--- NOTE | 2024-05-03 13:50 | P.PAINPG ---
PQRS Measure Charge Sheet Comment: HISTORY OF PRESENT ILLNESS: A 53 yr old male w caitlyn at side presents today w severe and chronic LBP since Spring 2023 secondary to radiculopathy, spondylosis and facet arthropathy without myelopathy for evaluation s/p ESTELITA L4-L5 #1. Pt states he experienced 0 % pain relief s/p procedure. Pt admits he underwent a BL RFA L4-L5/ L5-S1 in May 2014 where he experienced 90% pain relief x 5 yrs s/p procedure. Pt fell 5 days ago and heard a "pop" in his back, pain level was provoked at 10 /10 in intensity, intermittent, localized in the lumbar spine, predominantly axial, achy in character w occasional shooting pain towards the R knee and RLE. Pain is provoked by over activity. Pain is alleviated by physician guided home exercises 4-5 times weekly since Dec 2023, medications, topical, repositioning and rest . Interventional procedures include L RFA L3-L5 (06/12), ESTELITA L4-L5 x1 Medications include Neurontin, Tramadol, Celebrex, Naproxen, Lidoderm REVIEW OF ORGAN SYSTEMS: CONSTITUTIONAL: No fevers or chills. No recent weight loss. NEUROLOGICAL: + numbness and tingling along the distal extremities. No seizure disorders or headaches. MUSCULOSKELETAL: + pain PSYCHIATRIC: Denies current depression or suicidal thoug hts. Physical Examinations : Constitutional : Cooperative , not in acute distress . Neurologic : Cranial nerve II to XII intact. No focal neurological deficits. Psychiatric : alert & oriented x 3. Matching mood & appropriate affect. Judgment & insight intact. Musculoskeletal : Cervical Spine Motor strength in the deltoid and biceps: Normal right side. Normal Left side Motor strength biceps and the wrist extensors: Normal right side . Normal left side Motor strength in the triceps muscle: Normal right side. Normal left side Deep tendon reflexes: Normal at the biceps. Normal at Brachioradialis. Normal at triceps Vertebral body tenderness to deep palpation over Cervical facet loading test: positive bilaterally Spurling test: positive bilaterally Neck distraction test: positive bilaterally Adwoa sign: positive bilaterally Lumbar spine Motor strength lower extremities ,thigh and legs 5/5 Right side , 5/5 Left side Deep tendon reflexes : Normal Knee Jerk. Normal Ankle Jerk Vertebral body tenderness over L4 Beard Test positive Lumbar facet Loading Test: positive Right / positive Left L4-L5 Range of motion of the lumbar spine Flexion 30 degrees, extension 10 degrees Straight Leg Raise test: Left/ Right positive at <35 degrees Reva test: positive right / positive left. Severe tenderness over the Sacroiliac joint on the Right / Left sides Gaenslen test: positive bilaterally Seated flexion test: positive bilaterally. Sacral spine : Severe tenderness over the Sacroiliac joint: right side / left side Range of motion: Flexion of the lumbar spine <60 degrees Range of motion: Extension of the lumbar spine <20 degrees Gaenslen's Test positive Reva test: positive right side / left side Thigh Thrust Test Sacral Thrust Test Imaging: MRI non contrast lumbar spine from 02/08/24 reviewed Assessment/ Plan : L4-L5 anterolisthesis w 9 mm R sided synovial cyst Recommendation of L RFA L4-L5. Risks, benefits of procedure discussed and patient verbalized understanding. Admits to anti- coagulant use or medical history of diabetes. Protocol for discontinuation/ continuation of medications liz procedure discussed. Minimal anesthesia including Fentanyl and Versed if clinically indicated. [place] 7.5/325mg #18 NR. Use, side effects, adverse reactions, safe storage discussed. All questions answered. I have spent greater than 30 minutes on patient care today. Dr Ellis was available by phone for the evaluation of this patient. The time was used to review the medical records including relevant urine studies and Prescription history (MAPs), review of the available imaging, evaluation and examination of the patient, coordination of care with the medical staff and if applicable referring physicians, as well as creation of the medical record - Pain Location Bilateral Lower Back Non-Pharmacological Interventions: Elevation, Heat, Inactivity, Position/Reposition, Sitting Pharmacological Interventions: Block, Epidural, PRN Medication, Scheduled Medication, Topical Medication PQRS Narrative: Smoking Status Never smoker Hx Alcohol Use (MH) No Home Medications: Ambulatory Orders Naproxen 500 mg PO BID PRN 03/29/14 Tamsulosin HCl [Flomax] 0.4 mg PO DAILY 04/27/20 Celecoxib [CeleBREX] 200 mg PO DAILY 04/25/24 Gabapentin [Neurontin] 400 mg PO TID 04/25/24 Testosterone Cypionate [Depo-Testosterone] 200 mg IM Q14D 04/25/24 Cyclobenzaprine [Flexeril] 10 mg PO HS 05/03/24 traMADol HCL 50 mg PO Q6H PRN 05/03/24 Controlled Substance Measures - Controlled Substance Measures Is patient prescribed a controlled substance at discharge?: Yes When asked, does pt state using other controlled substances?: Yes If prescribed controlled substance>3 days was MAPS reviewed?: Prescribed <3 Days
== END ==
LOC: PNWHC3 11:23
PROVIDERS: ATTEND Specialist
DX: M43.16 Spondylolisthesis, lumbar region (principal); M71.21 Synovial cyst of popliteal space [Baker], right knee; Z88.5 Allergy status to narcotic agent; Z88.6 Allergy status to analgesic agent
CPT/HCPCS: 99211

== ENCOUNTER 2024-05-04 10:37 | Emergency (ER) | payer OTHER ==
--- NOTE | 2024-05-04 11:06 | ED ---
Back Pain HPI - General Chief Complaint: Back Pain/Injury Stated Complaint: leg/back pain Time Seen by Provider: 05/04/24 10:43 Source: patient, RN notes reviewed Mode of arrival: ambulatory Limitations: no limitations - History of Present Illness MD Complaint: back pain Onset/Timin -: days(s) Similar Symptoms Previously: Yes Place: work Radiation: right leg Severity scale (1-10): 10 Quality: burning Consistency: constant Improves With: immobilization Worsens With: movement, walking Associated Symptoms: difficulty walking Treatments Prior to Arrival: NSAIDS (Celebrex, naproxen), prescription analgesics (Tramadol), other medications (Neurontin, Flexeril) - Related Data Home Medications Medication Instructions Recorded Confirmed Naproxen 500 mg PO BID PRN 03/29/14 05/03/24 Tamsulosin HCl [Flomax] 0.4 mg PO DAILY 04/27/20 05/03/24 Celecoxib [CeleBREX] 200 mg PO DAILY 04/25/24 05/03/24 Gabapentin [Neurontin] 400 mg PO TID 04/25/24 05/03/24 Testosterone Cypionate 200 mg IM Q14D 04/25/24 05/03/24 [Depo-Testosterone] Cyclobenzaprine [Flexeril] 10 mg PO HS 05/03/24 05/03/24 traMADol HCL 50 mg PO Q6H PRN 05/03/24 05/03/24 Previous Rx's Medication Instructions Recorded HYDROcodone/APAP 5-325MG [[place] 1 tab PO Q6HR PRN 3 Days #12 tab 05/03/24 5-325] Allergies Allergy/AdvReac Type Severity Reaction Status Date / Time fentanyl Allergy Rash/Hives Verified 05/04/24 10:44 moxifloxacin HCl Allergy Anaphylaxis Verified 05/04/24 10:44 [From Avelox] duloxetine HCl AdvReac Nausea & Verified 05/04/24 10:44 [From Cymbalta] Vomiting Review of Systems ROS Statement: Those systems with pertinent positive or pertinent negative responses have been documented in the HPI. ROS Other: All systems not noted in ROS Statement are negative. Past Medical History Past Medical History: Cancer, Chest Pain / Angina, Hyperlipidemia, Hypertension, Memory Impairment, Musculoskeletal Disorder, Neurologic Disorder, Prostate Disorder, Rheumatoid Arthritis (RA), Sleep Apnea/CPAP/BIPAP Additional Past Medical History / Comment(s): cyst on one kidney, hx severe dizzy spells, cancer --skin cancer x2, trigeminal nerve damage, back pain, wears cpap. occasional rapid heart rate. current hearing loss to left ear being tx with dose pack. bph. no meds for BP or cholesterol at this time. some short term memory loss,focus issues,comprehension per pt History of Any Multi-Drug Resistant Organisms: None Reported Additional Past Surgical History / Comment(s): sinus surgery x3, skin cancer removal, orbital fracture repair, egd Past Anesthesia/Blood Transfusion Reactions: No Reported Reaction Past Psychological History: Anxiety, Depression, Panic Disorder, PTSD Smoking Status: Never smoker Past Alcohol Use History: None Reported Past Drug Use History: None Reported - Past Family History Mother Family Medical History: Diabetes Mellitus, Rheumatoid Arthritis (RA) General Exam Limitations: no limitations General appearance: alert, in no apparent distress Head exam: Present: atraumatic, normocephalic, normal inspection Eye exam: Present: normal appearance, PERRL, EOMI. Absent: scleral icterus, conjunctival injection, periorbital swelling ENT exam: Present: normal exam, mucous membranes moist Neck exam: Present: normal inspection. Absent: tenderness, meningismus, lymphadenopathy Respiratory exam: Present: normal lung sounds bilaterally. Absent: respiratory distress, wheezes, rales, rhonchi, stridor Cardiovascular Exam: Present: regular rate, normal rhythm, normal heart sounds. Absent: systolic murmur, diastolic murmur, rubs, gallop, clicks GI/Abdominal exam: Present: soft, normal bowel sounds. Absent: distended, tenderness, guarding, rebound, rigid Extremities exam: Present: normal inspection, full ROM, normal capillary refill. Absent: tenderness, pedal edema, joint swelling, calf tenderness Back exam: Present: normal inspection, muscle spasm, paraspinal tenderness (Positive bilateral paralumbar and right superior gluteus tenderness and muscle spasm). Absent: vertebral tenderness Neurological exam: Present: alert, oriented X3, CN II-XII intact Psychiatric exam: Present: normal affect, normal mood Skin exam: Present: warm, dry, intact, normal color. Absent: rash Course Vital Signs 05/04/24 05/04/24 05/04/24 10:41 11:12 14:31 Temperature 98 F 98 F 98.2 F Pulse Rate 128 H 127 H 101 H Respiratory 22 18 18 Rate Blood Pressure 173/128 142/88 125/79 O2 Sat by Pulse 97 97 96 Oximetry Medical Decision Making - Medical Decision Making Was pt. sent in by a medical professional or institution (DAHIANA Gurrola, BLOCK B[employer]TER MULE OPERATOR, urgent care, hospital, or [place] health care facility...) When possible be specific @ -[No] Did you speak to anyone other than the patient for history (EMS, parent, family, police, friend...)? What history was obtained from this source @ -[No] Did you review nursing and triage notes (agree or disagree)? Why? @ -[I reviewed and agree with nursing and triage notes] Were old charts reviewed (outside hosp., previous admission, EMS record, old EKG, old radiological studies, urgent care reports/EKG's, [place] health care facility records)? Report findings @ -[No old charts were reviewed] Differential Diagnosis (chest pain, altered mental status, abdominal pain women, abdominal pain men, vaginal bleeding, weakness, fever, dyspnea, syncope, headache, dizziness, GI bleed, back pain, seizure, CVA, palpatations, mental health, musculoskeletal)? @ -Differential Back Pain: Strain, zoster, cauda equina syndrome, epidural abscess, vertebral osteomyelitis, discitis, fracture, subluxation, disc herniation, DJD, spinal stenosis, dissection, AAA, pancreatitis, peptic ulcer disease, pyelonephritis, kidney stone, this is not meant to be an all-inclusive list. EKG interpreted by me (3pts min.). @ -Not done X-rays interpreted by me (1pt min.). @ -[None done] CT interpreted by me (1pt min.). @ -[None done] U/S interpreted by me (1pt. min.). @ -[None done] What testing was considered but not performed or refused? (CT, X-rays, U/S, labs)? Why? @ -[None] What meds were considered but not given or refused? Why? @ -[None] Did you discuss the management of the patient with other professionals (professionals i.e. DAHIANA Gurrola, [employer] B[employer]TER MULE OPERATOR, lab, RT, psych nurse, psychosocial rehabilitation counselor, clothes drier repairer, teacher, executive officer, case maker)? Give summary @ -[No] Was smoking cessation discussed for >3mins.? @ -[No] Was critical care preformed (if so, how long)? @ -[No] Were there social determinants of health that impacted care today? How? (Homelessness, low income, unemployed, alcoholism, drug addiction, transportation, low edu. Level, literacy, decrease access to med. care, correction, rehab)? @ -[No] Was there de-escalation of care discussed even if they declined (Discuss DNR or withdrawal of care, Hospice)? DNR status @ -[No] What co-morbidities impacted this encounter? (DM, HTN, Smoking, COPD, CAD, Cancer, CVA, ARF, Chemo, Hep., AIDS, mental health diagnosis, sleep apnea, morbid obesity)? @ -[None] Was patient admitted / discharged? Hospital course, mention meds given and route, prescriptions, significant lab abnormalities, going to OR and other pertinent info. @ -[hospital course] Undiagnosed new problem with uncertain prognosis? @ -[No] Drug Therapy requiring intensive monitoring for toxicity (Heparin, Nitro, Insulin, Cardizem)? @ -[No] Were any procedures done? @ -[No] Diagnosis/symptom? @ -Sciatica with radiculopathy Acute, or Chronic, or Acute on Chronic? @ -Acute Uncomplicated (without systemic symptoms) or Complicated (systemic symptoms)? @ -Uncomplicated Side effects of treatment? @ -[No] Exacerbation, Progression, or Severe Exacerbation? @ -[No] Poses a threat to life or bodily function? How? (Chest pain, [place], [place], pneumonia, PE, COPD, DKA, ARF, appy, cholecystitis, CVA, Diverticulitis, Homicidal, Suicidal, threat to staff... and all critical care pts) @ -[No] - Lab Data Result diagrams: 05/04/24 11:54 05/04/24 11:54 Lab Results 05/04/24 05/04/24 Range/Units 11:54 11:54 WBC 7.4 (3.8-10.6) k/uL RBC 5.52 (4.30-5.90) m/uL Hgb 16.7 (13.0-17.5) gm/dL Hct 52.6 (39.0-53.0) % MCV 95.3 (80.0-100.0) fL MCH 30.2 (25.0-35.0) pg MCHC 31.7 (31.0-37.0) g/dL RDW 14.8 (11.5-15.5) % Plt Count 169 (150-450) k/uL MPV 7.7 Neutrophils % 79 % Lymphocytes % 13 % Monocytes % 5 % Eosinophils % 1 % Basophils % 1 % Neutrophils # 5.8 (1.3-7.7) k/uL Lymphocytes # 1.0 (1.0-4.8) k/uL Monocytes # 0.4 (0-1.0) k/uL Eosinophils # 0.1 (0-0.7) k/uL Basophils # 0.0 (0-0.2) k/uL Sodium 138 (137-145) mmol/L Potassium 4.5 (3.5-5.1) mmol/L Chloride 101 (98-107) mmol/L Carbon Dioxide 26 (22-30) mmol/L Anion Gap 11 mmol/L BUN 27 H (9-20) mg/dL Creatinine 1.13 (0.66-1.25) mg/dL Est GFR (CKD-EPI)AfAm 86 (>60 ml/min/1.73 sqM) Est GFR (CKD-EPI)NonAf 75 (>60 ml/min/1.73 sqM) Glucose 87 (74-99) mg/dL Calcium 9.5 (8.4-10.2) mg/dL Total Bilirubin 0.8 (0.2-1.3) mg/dL AST 32 (17-59) U/L ALT 25 (4-49) U/L Alkaline Phosphatase 91 (38-126) U/L Total Protein 7.9 (6.3-8.2) g/dL Albumin 4.9 (3.5-5.0) g/dL Disposition Clinical Impression: Degeneration of intervertebral disc, Lumbar radiculopathy Disposition: HOME SELF-CARE Condition: Good Instructions (If sedation given, give patient instructions): Acute Low Back Pain (ED) Additional Instructions: Follow-up with orthopedic appointment on Tuesday for ongoing management of pain. Is patient prescribed a controlled substance at d/c from ED?: No Referrals: Ab Burton DO [Primary Care Provider] - 1-2 days Time of Disposition: 14:37
[2024-05-04] MEDS: ORPHENADRINE 30 MG/ML 2 ML VIAL IM STA (11:15)
[2024-05-04] MEDS: LIDOCAINE 4% PATCH TOPICAL ONE (11:16)
[2024-05-04 11:21] VITALS: RESP 18
[2024-05-04] MEDS: hydrALAZINE HCL 20 MG/ML 1 ML VIAL IM STA (11:25)
[2024-05-04 12:15] LABS: Basophils % (A) 1 %; Eosinophils # (A) 0.1 k/uL (0-0.7); Eosinophils % (A) 1 %; HCT 52.6 % (39.0-53.0); HGB 16.7 gm/dL (13.0-17.5); Lymphocytes % (A) 13 %; MCH 30.2 pg (25.0-35.0); MCHC 31.7 g/dL (31.0-37.0); MCV 95.3 fL (80.0-100.0); Mean Platelet Volume 7.7; Monocytes # (A) 0.4 k/uL (0-1.0); Monocytes % (A) 5 %; Neutrophils # (A) 5.8 k/uL (1.3-7.7); Neutrophils % (A) 79 %; Platelet Count 169 k/uL (150-450); RBC 5.52 m/uL (4.30-5.90); RDW 14.8 % (11.5-15.5); WBC 7.4 k/uL (3.8-10.6)
[2024-05-04 12:36] LABS: ALT 25 U/L (4-49); AST 32 U/L (17-59); African American GFR (CKD) 86 (>60 ml/min/1.73 sqM); Albumin 4.9 g/dL (3.5-5.0); Alkaline Phosphatase 91 U/L (38-126); Anion Gap 11 mmol/L; Blood Urea Nitrogen 27 mg/dL (9-20); Calcium 9.5 mg/dL (8.4-10.2); Carbon Dioxide 26 mmol/L (22-30); Chloride 101 mmol/L (98-107); Glucose 87 mg/dL (74-99); Non-African American GFR(CKD) 75 (>60 ml/min/1.73 sqM); Potassium 4.5 mmol/L (3.5-5.1); Sodium 138 mmol/L (137-145); Total Bilirubin 0.8 mg/dL (0.2-1.3); Total Protein 7.9 g/dL (6.3-8.2)
--- NOTE | 2024-05-04 13:18 | CT ---
EXAMINATION TYPE: CT lumbar spine w con DATE OF EXAM: 05/04/2024 1:06 PM COMPARISON: 01/18/2017. CLINICAL INDICATION: Male, 53 years old with history of Increased low back pain, epidural injection l st wk; PHH, Low back pain, bilateral leg pain, numbness, cortisone shot last Tuesday TECHNIQUE: Multiple axial images were obtained from the midportion of T11 through the sacroiliac nadine nts. Soft tissue and bone windows in coronal and sagittal planes were obtained and reviewed. 3-D ref ormats of the bones were created on a separate workstation and submitted for review. Contrast used:100 ml mL of Isovue 300 with IV Contrast, (None, if empty). Oral contrast used: (None, if empty). CT DLP: 1107.6 mGycm, Automated exposure control for dose reduction was used. FINDINGS: Alignment: There are 5 lumbar type vertebral bodies. Grade 1 anterolisthesis of L4 and L5 with severe facet joint arthropathy.. Bone: No evidence of fracture is identified. Mild degeneration changes with osteophyte formation, di sc space narrowing, facet joint arthropathy. Transitional vertebrae at L5 with pseudoarthrosis of the left transverse process of the sacrum. Grade 1 atrial disease L4 and L5 No evidence for spondylolysi s. Discs: T12-L1: No spinal canal or neural foraminal stenosis is identified. L1-L2: No spinal canal or neural foraminal stenosis is identified. L2-L3: Facet joint arthropathy and disc bulging result in mild spinal canal stenosis and mild to mode rate bilateral neural foraminal stenosis. L3-L4: Facet joint arthropathy and disc bulging result in mild spinal canal stenosis and moderate yahir ateral neural foraminal stenosis. L4-L5: Grade 1 anterolisthesis with severe facet joint arthropathy at this level. Moderate spinal can al stenosis. Moderate bilateral neural foraminal stenosis. L5-S1: No spinal canal or neural foraminal stenosis is identified. Other: None IMPRESSION: 1. No evidence for spinal fracture. 2. New from 2017, Grade 1 anterolisthesis of L4 and L5 with mild spinal canal stenosis and mild bilat eral neural foraminal stenosis. 3. Degeneration changes with disc bulge at L3-L4 with moderate bilateral neural foraminal stenosis. 4. Transitional vertebrae of left transverse process of L5 sacrum pseudoarthrosis correlate for trans itional vertebrae pain syndrome. [facility], , 05/04/2024 1:16 PM
[2024-05-04] MEDS: KETOROLAC 15 MG/ML 1 ML VIAL IVP STA (14:02)
[2024-05-04] MEDS: HYDROmorphone 0.5 MG/0.5 ML SYRINGE IVP STA ×2 (14:02→14:56)
[2024-05-04] MEDS: methylPREDNISolone SOD SUCCI 125 MG/2 ML VIAL IV STA (14:03)
[2024-05-04 14:31] VITALS: BP 125/79; PULSE 101; TEMP 98.2
== END 2024-05-04 16:14 | disposition home or self-care (01) ==
LOC: EC 10:37
DX: M51.16 Intervertebral disc disorders with radiculopathy, lumbar region (principal)
CPT/HCPCS: 99284; 96374; 96375 ×2; 96376; 96372; 36415; 80053; 85025; 72132; J2360; J1885; J1171; Q9967; J2919

== ENCOUNTER 2024-05-22 06:19 | Day surgery (SDC) | payer OTHER ==
[2024-05-22 06:41] VITALS: RESP 16; TEMP 97.2
[2024-05-22] MEDS: LACTATED RINGERS 1,000 ML IV SCH (06:41)
[2024-05-22] MEDS: LIDOCAINE 1% (10MG/ML) FOR IV START INTRADERMA STA (06:42)
[2024-05-22] MEDS: IV FLUID CONTINUATION 1,000 ML IV ONE ×2 (06:42→07:39)
[2024-05-22] MEDS ORDERED: ROPIVACAINE 5MG/ML 20ML VIAL ONE (07:02)
[2024-05-22] MEDS ORDERED: MIDAZOLAM 2 MG/2 ML VIAL ONE (07:02)
[2024-05-22] MEDS ORDERED: methylPREDNISolone ACETATE 40 MG/ML 1 ML VIAL ONE (07:02)
--- NOTE | 2024-05-22 07:33 | P.PCN ---
Date of Procedure: 05/22/24 Procedure(s) Performed: PREOPERATIVE DIAGNOSIS: 1-Lumbar Spondylosis with Facet Arthropathy without myelopathy.2-Lumber degenerative disc disease.3-lumbar spinal stenosis POSTOPERATIVE DIAGNOSIS: Same as preop diagnosis. PROCEDURES : Bilateral Radiofrequency thermocoagulation, L3 , L4 , L5 medial branch, with fluoroscopic guidance (fluoroscopy images in the rad department) ( to denervate the facet joint at bilateral L4-5 , L5-S1 levels ). ANESTHESIA: Moderate sedation with intravenous versed 6 mg , and local infiltration with Ropivacaine 0.5 % . (Sedation start time 07:02, end time 07:26 )) EBL: Minimal PROCEDURE INDICATION: The patient with low back pain secondary to lumbar facet arthropathy who had more than 50% relief of her pain with previous diagnostic lumbar medial branch block with bupivacaine. PROCEDURE DESCRIPTION / TECHNIQUE: The patient was seen and identified in the preoperative area. Risks, benefits, complications, including but not limited to risk of infection ,bleeding , allergic reactions to the medications and no complete pain releife , and alternatives were discussed with the patient, the patient agreed to proceed with the procedure and signed the consent. IV was started. Vital signs remained stable throughout the procedure. Patient was taken to the OR and time out was completed. The patient was placed in the prone position on the procedure table. The lumber area was prepped and draped in the usual sterile fashion. . Vital signs were closely monitored during the procedure .IV sedation was used during the procedure to decrease patients anxiety. Using AP and then oblique fluoroscopy, the ``eye of the Thuan dog corresponding to the connection between the superior and transverse articular processes of right L3, L4, and L5 were identified, marked, and localized with 1% lidocaine. Subsequently, a 18 guage(VENOM )100-mm radiofrequency cannula with a 10-mm active tip was advanced guided by fluoroscopy to each of the``eyes of the Thuan dog at right L3, L4, and L5. Each site then underwent sensory testing at 50 Hz and 0 to 1 volt and motor testing at 2.5 Hz and 0 to 3 volt with local stimulation, but no radicular symptoms down the legs. Thereafter each sites underwent radiofrequency thermocoagulation at 80 degrees celsius for 90 seconds after injecting 0.5 ml of PF Ropivacaine 1ml, then after the thermocoagulation done , 1 ml of the block solution containing Depo-Medrol 20 mg and 3 ml of Ropivacaine 0.5% was injected at the right L3 , L4 , and L5 , levels after negative aspiration of CSF and blood and with no paresthesias. Cannulas were retracted while injecting lidocaine 1% until the needle is out. The same procedure was repeated at the level of Left L3, L4, and L5 levels. At the end of the procedure, the skin was cleansed and bandages were applied. COMPLICATIONS: No acute complications. DISPOSITION / PLANS: The patient was placed in a supine position and transferred to the recovery area in a stable condition for observation and was discharged from the recovery room after meeting discharge criteria. Home discharge instructions given to the patient by the staff. The patient was reexamined prior to discharge. The patient will follow-up with Dr. Sen . note= she was referred to have RFA on the right side, patient reported in the preop holding area that he is having pain on both side, we checked with the insurance operations rep , it was okay to do the procedure on both side.
[2024-05-22 08:03] VITALS: BP 133/78; PULSE 78
--- NOTE | 2024-05-22 08:17 | FL ---
EXAMINATION TYPE: FL guided pain mgmt statistic DATE OF EXAM: 05/22/2024 CLINICAL INDICATION: Male, 53 years old with history of PAIN; PHH, pain TECHNIQUE: Fluoroscopy. COMPARISON: None. FINDINGS: Fluoroscopic guidance was provided during pain relief procedure performed by Dr. Ellis . A total of 24.5 seconds of fluoroscopic time was utilized during the procedure and 6 intraoperativ e images are acquired. Image acquired shows needle localization at multiple levels in the lumbar spin e. Degeneration changes of the visualized joints. Total DAP: 0.13184 mGy m2. IMPRESSION: As Above. [facility], , 05/22/2024 8:15 AM
== END 2024-05-22 08:12 | disposition home or self-care (01) ==
LOC: ORPAIN 06:19
PROVIDERS: ATTEND Specialist
DX: M47.816 Spondylosis without myelopathy or radiculopathy, lumbar region (principal); M48.061 Spinal stenosis, lumbar region without neurogenic claudication; M51.369 Other intervertebral disc degeneration, lumbar region without mention of lumbar back pain or lower extremity pain; Z88.6 Allergy status to analgesic agent; Z88.8 Allergy status to other drugs, medicaments and biological substances; Z79.1 Long term (current) use of non-steroidal anti-inflammatories (NSAID); Z79.899 Other long term (current) drug therapy
CPT/HCPCS: 64635; 64636 ×2; 99152; 99153; J2250; J2795; J1010

== ENCOUNTER → 2024-06-07 | Outpatient (CLI) | payer OTHER ==
[2024-06-07 10:59] VITALS: BP 143/97; PULSE 100; RESP 18; TEMP 97.5
--- NOTE | 2024-06-07 15:47 | P.PAINPG ---
Objective - Vital Signs Vital signs: Intake & Output 06/06/24 06/07/24 06/07/24 18:59 06:59 18:59 Weight 94.347 kg PQRS Measure Charge Sheet Comment: HISTORY OF PRESENT ILLNESS: A 53 yr old male presents today w severe and chronic LBP since Spring 2023 secondary to radiculopathy, spondylosis and facet arthropathy without myelopathy, BL Sacroiliitis for evaluation s/p BL RFA L4-L5/ L5-S1. Pt states he experienced 50 % pain relief s/p procedure. Pt states pain level is provoked at 7 /10 in intensity, intermittent, localized in the lumbar spine, predominantly axial, sharp in character w shooting pain to buttocks R> L. Pain is provoked by sitting upright for periods > 20 min. Pain is alleviated by physician guided home exercises 4-5 times weekly since Dec 2023, medications, topical, repositioning and rest . Interventional procedures include L RFA L3-L5 (06/12), ESTELITA L4-L5 x1, BL RFA L3-L5 x2 (06/12, 05/22) Medications include Neurontin, Tramadol, Celebrex, Naproxen, Lidoderm REVIEW OF ORGAN SYSTEMS: CONSTITUTIONAL: No fevers or chills. No recent weight loss. NEUROLOGICAL: + numbness and tingling along the distal extremities. No seizure disorders or headaches. MUSCULOSKELETAL: + pain PSYCHIATRIC: Denies current depression or suicidal thoughts. Physical Examinations : Constitutional : Cooperative , not in acute distress . Neurologic : Cranial nerve II to XII intact. No focal neurological deficits. Psychiatric : alert & oriented x 3. Matching mood & appropriate affect. Judgment & insight intact. Musculoskeletal : Cervical Spine Motor strength in the deltoid and biceps: Normal right side. Normal Left side Motor strength biceps and the wrist extensors: Normal right side . Normal left side Motor strength in the triceps muscle: Normal right side. Normal left side Deep tendon reflexes: Normal at the biceps. Normal at Brachioradialis. Normal at triceps Vertebral body tenderness to deep palpation over Cervical facet loading test: positive bilaterally Spurling test: positive bilaterally Neck distraction test: positive bilaterally Adwoa sign: positive bilaterally Lumbar spine Motor strength lower extremities ,thigh and legs 5/5 Right side , 5/5 Left side Deep tendon reflexes : Normal Knee Jerk. Normal Ankle Jerk Vertebral body tenderness over L4 Beard Test positive Lumbar facet Loading Test: positive Right / positive Left L4-L5 Range of motion of the lumbar spine Flexion 30 degrees, extension 10 degrees Straight Leg Raise test: Left/ Right positive at <35 degrees Reva test: positive right / positive left. Severe tenderness over the Sacroiliac joint on the Right / Left sides Gaenslen test: positive bilaterally Seated flexion test: positive bilaterally. Sacral spine : Severe tenderness over the Sacroiliac joint: right side / left side Range of motion: Flexion of the lumbar spine <60 degrees Range of motion: Extension of the lumba r spine <20 degrees Gaenslen's Test positive BL Reva test: positive right side > left side Thigh Thrust Test BL positive Sacral Thrust Test Imaging: MRI non contrast lumbar spine from 02/08/24 reviewed Assessment/ Plan : L4-L5 anterolisthesis w 9 mm R sided synovial cyst, BL Sacroiliitis Recommendation of BL SI injection #1. Risks, benefits of procedure discussed and patient verbalized understanding. All questions answered. I have spent greater than 30 minutes on patient care today. Dr Ellis was available by phone for the evaluation of this patient. The time was used to review the medical records including relevant urine studies and Prescription history (MAPs), review of the available imaging, evaluation and examination of the patient, coordination of care with the medical staff and if applicable referring physicians, as well as creation of the medical record - Pain Location Lower Back Non-Pharmacological Interventions: Inactivity PQRS Narrative: Smoking Status Never smoker Hx Alcohol Use (MH) No Home Medications: Ambulatory Orders Naproxen 500 mg PO BID PRN 03/29/14 Tamsulosin HCl [Flomax] 0.4 mg PO DAILY 04/27/20 Celecoxib [CeleBREX] 200 mg PO BID 04/25/24 Gabapentin [Neurontin] 600 mg PO TID 04/25/24 Testosterone Cypionate [Depo-Testosterone] 200 mg IM Q14D 04/25/24 Cyclobenzaprine [Flexeril] 10 mg PO HS 05/03/24 traMADol HCL 100 mg PO Q6H PRN 05/03/24 Controlled Substance Measures - Controlled Substance Measures Is patient prescribed a controlled substance at discharge?: No
== END ==
LOC: PNWHC3 10:40
PROVIDERS: ATTEND Specialist
DX: M43.16 Spondylolisthesis, lumbar region (principal); M46.1 Sacroiliitis, not elsewhere classified; Z88.1 Allergy status to other antibiotic agents; Z88.5 Allergy status to narcotic agent; Z88.8 Allergy status to other drugs, medicaments and biological substances
CPT/HCPCS: 99211

== ENCOUNTER → 2024-06-13 | Outpatient (CLI) | payer OTHER ==
--- NOTE | 2024-06-13 20:43 | MR ---
INDICATION: Patient age:Male; 53 years old; Reason for study: M54.2 CERVICALGIA; PHH. COMPARISON: Cervical spine radiograph 06/04/2024, 04/23/2024. TECHNIQUE: Multi planar, multi sequence imaging was performed of the cervical spine. No Gadolinium wa s given. FINDINGS: Alignment: The cervical vertebral bodies have preserved heights. Grade 1 anterolisthesis of C4 on C5 and grade 1 retrolisthesis of C5 on C6. Reversal of normal cervical lordosis. Bones: Multilevel anterior osteophytosis. Type I Modic changes involving the endplates around the C5- C7 discs. Cord: The spinal cord is unremarkable with regards to their signal intensity and morphology. Discs: Multilevel disc desiccation is present. C2-C3: No significant disc pathology. The spinal canal is patent. No neural foraminal stenosis. C3-C4: Eccentric right posterior disc osteophyte complex with minimal effacement of the anterior thec al sac. No significant central canal stenosis. The left neural foramen is patent. Moderate right neur oforamina stenosis. C4-C5: Broad-based disc bulge with mild effacement of the anterior thecal sac. Mild central canal alaina nosis. Right facet arthropathy and uncovertebral joint hypertrophy. The left neural foramen is paten t. Mild right neural foraminal stenosis. C5-C6: Posterior disc osteophyte complex with [id number] central canal stenosis. Uncovertebral joint hypertrophy with moderate right and [id number] left neural foraminal stenosis. C6-C7: Broad-based disc bulge with uncovertebral joint hypertrophy resulting in moderate central del l stenosis. Moderate bilateral neural foraminal stenosis. C7-T1: No significant disc pathology. The spinal canal is patent. No neural foraminal stenosis. Other: None. IMPRESSION: 1. Moderate multilevel disc degeneration with associated osteoarthritic changes as described above. Most pronounced from C3 through C7. 2. Grade 1 anterolisthesis of C4 on C5 and grade 1 retrolisthesis of C5 on C6. [facility], , 06/13/2024 8:41 PM
== END | disposition home or self-care (01) ==
LOC: RADMRIMAIN 18:53
PROVIDERS: ATTEND Orthopaedic Surgery
DX: M48.02 Spinal stenosis, cervical region (principal); M47.812 Spondylosis without myelopathy or radiculopathy, cervical region; M50.31 Other cervical disc degeneration, high cervical region; M43.12 Spondylolisthesis, cervical region; M99.71 Connective tissue and disc stenosis of intervertebral foramina of cervical region
CPT/HCPCS: 72141

== ENCOUNTER 2024-06-14 07:42 | Day surgery (SDC) | payer OTHER ==
[2024-06-12 16:34] VITALS: BMI 29.8
[2024-06-14 08:36] VITALS: TEMP 97.1
[2024-06-14] MEDS ORDERED: ROPIVACAINE 5MG/ML 20ML VIAL ONE (09:52)
[2024-06-14] MEDS ORDERED: IOPAMIDOL M300 15ML VIAL ONE (09:52)
[2024-06-14] MEDS ORDERED: methylPREDNISolone ACETATE 80 MG/ML 1 ML VIAL ONE (09:52)
[2024-06-14 10:18] VITALS: RESP 17
--- NOTE | 2024-06-14 10:18 | FL ---
EXAMINATION TYPE: FL guided pain mgmt statistic Intraoperative/procedural fluoroscopic services were provided. CLINICAL INDICATION:Male, 53 years old with history of SI JOINT INJECTION; , [facility] FINDINGS: Fluoroscopic imaging demonstrating bilateral SI joint injections. No radiographic evidence for compli cation. Total fluoroscopy time is 61.5 seconds. DAP: 0.44181 mGym2 Please see the operative/procedural note for further details. [facility], , 06/14/2024 10:16 AM
--- NOTE | 2024-06-14 10:27 | P.PCN ---
Description of Procedure: Preprocedure diagnosis. Sacroiliac joint arthropathy. Postprocedure diagnosis. As above. Procedure done. Injection of the radio contrast material into bilateral sacroiliac joint, sacroiliac joint arthrogram, interpretation of arthrogram. Bilateral sacroiliac joint injection with local anesthetics and steroid under fluoroscopic guidance. Anesthesia. Local anesthetic infiltration. Continuous EKG, pulse ox, blood pressure, and verbal communication was maintained with the patient in OR. Blood loss. Minimal. Indication. Sacroiliac joint arthropathy. Discussed the procedure, alternatives, complications which may include infection,bleeding, nerve damage, aggravation of pain which could be permanent. Patient understands and questions were answered. Procedure note. After getting consent patient in OR in prone position. Back prepped with chlorhexidine and draped in sterile manner. After injecting 10 mL of 1% lidocaine subcutaneously, a 22-gauge spinal needle was introduced under tunnel vision of the fluoroscope in the lower and posterior one third of right/left sacroiliac joint. After needle position confirmation by AP and crosstable lateral view, 1 mL of Isovue 200 contrast was injected. Contrast was noted to be into the sacroiliac joint. After repeat negative aspiration, 2.5 mL solution was injected which consists of 1.5 ml of 0.5% Ropivacaine mixed with 1 mL of 40 mg Depo-Medrol. In exactly same way left sacroiliac joint was injected with same amount of solution. After the procedure needles were taken out. Bandage applied. Disposition. Patient tolerated the procedure well. No complication. Patient was discharged home in stable condition.
[2024-06-14 10:31] VITALS: BP 127/84; PULSE 69
== END 2024-06-14 10:41 | disposition home or self-care (01) ==
LOC: ORPAIN 07:42
PROVIDERS: ATTEND Pain Medicine Interventional Pain Medicine
DX: M46.1 Sacroiliitis, not elsewhere classified (principal)
CPT/HCPCS: 27096; Q9967; J2795; J1010

== ENCOUNTER → 2024-07-05 | Outpatient (CLI) | payer OTHER ==
[2024-07-05 11:07] VITALS: BP 132/92; PULSE 101; RESP 16
--- NOTE | 2024-07-05 14:52 | P.PAINPG ---
Objective - Vital Signs Vital signs: Vital Signs Temp Pulse 101 H 07/05/24 10:57 Resp 16 07/05/24 10:57 BP 132/92 07/05/24 10:57 Pulse Ox 96 07/05/24 10:57 FiO2 Intake & Output 07/04/24 07/05/24 07/05/24 18:59 06:59 18:59 Weight 94.347 kg PQRS Measure Charge Sheet Mode of Arrival: Ambulatory Comment: HISTORY OF PRESENT ILLNESS: A 53 yr old male presents today w severe and chronic LBP since Spring 2023 secondary to radiculopathy, spondylosis and facet arthropathy without myelopathy, BL Sacroiliitis for evaluation s/p BL SI injection #1. Pt states he experienced 50 % pain relief s/p procedure. Pt states pain level is provoked at 6 /10 in intensity, intermittent, localized in the lumbar spine, predominantly axial, sharp in character w occasional shooting pain to the flanks. Pain is provoked by sitting upright for periods > 20 min. Pain is alleviated by physician guided home exercises 4-5 times weekly since Dec 2023, medications, topical, repositioning and rest . Interventional procedures include L RFA L3-L5 (06/12), ESTELITA L4-L5 x1, BL RFA L3-L5 x2 (06/12, 05/22), BL SI x1 (06/14/24) Medications include Neurontin, Tramadol, Celebrex, Naproxen, Lidoderm REVIEW OF ORGAN SYSTEMS: CONSTITUTIONAL: No fevers or chills. No recent weight loss. NEUROLOGICAL: + numbness and tingling along the distal extremities. No seizure disorders or headaches. MUSCULOSKELETAL: + pain PSYCHIATRIC: Denies current depression or suicidal thoughts. Physical Examinations : Constitutional : Cooperative , not in acute distress . Neurologic : Cranial nerve II to XII intact. No focal neurological deficits. Psychiatric : alert & oriented x 3. Matching mood & appropriate affect. Judgment & insight intact. Musculoskeletal : Cervical Spine Motor strength in the deltoid and biceps: Normal right side. Normal Left side Motor strength biceps and the wrist extensors: Normal right side . Normal left side Motor strength in the triceps muscle: Normal right side. Normal left side Deep tendon reflexes: Normal at the biceps. Normal at Brachioradialis. Normal at triceps Vertebral body tenderness to deep palpation over Cervical facet loading test: positive bilaterally Spurling test: positive bilaterally Neck distraction test: positive bilaterally Adwoa sign: positive bilaterally Lumbar spine Motor strength lower extremities ,thigh and legs 5/5 Right side , 5/5 Left side Deep tendon reflexes : Normal Knee Jerk. Normal Ankle Jerk Vertebral body tenderness over L4 Beard Test positive Lumbar facet Loading Test: positive Right / positive Left L4-L5 Range of motion of the lumbar spine Flexion 30 degrees, extension 10 degrees Straight Leg Raise test: Left/ Right positive at <35 degrees Reva test: positive right / positive left. Severe tenderness over the Sacroiliac joint on the Right / Left sides Gaenslen test: positive bilaterally Seated flexion test: positive bilaterally. Sacral spine : Severe tenderness over the Sacroiliac joint: right side / left side Range of motion: Flexion of the lumbar spine <60 degrees Range of motion: Extension of the lumbar spine <20 degrees Gaenslen's Test positive BL Reva test: positive right side > left side Thigh Thrust Test BL positive Sacral Thrust Test Imaging: MRI non contrast lumbar spine from 02/08/24 reviewed Assessment/ Plan : L4-L5 anterolisthesis w 9 mm R sided synovial cyst, BL Sacroiliitis Manage residual pain and may RTC on an as-needed basis. All questions answered. I have spent greater than 30 minutes on patient care today. Dr Ellis was available by phone for the evaluation of this patient. The time was used to review the medical records including relevant urine studies and Prescription history (MAPs), review of the available imaging, evaluation and examination of the patient, coordination of care with the medical staff and if applicable referring physicians, as well as creation of the medical record - Pain Location Bilateral Lower Back Non-Pharmacological Interventions: Elevation, Heat, Inactivity, Physical Therapy, Position/Reposition, Sitting Pharmacological Interventions: Block, Epidural, PRN Medication, Scheduled Medication, Topical Medication PQRS Narrative: Smoking Status Never smoker Blood Pressure 132/92 Pain Intensity [Bilateral 6 Lower Back] Scale Used Numeric (1 - 10) Hx Alcohol Use (MH) No Home Medications: Ambulatory Orders Naproxen 500 mg PO BID PRN 03/29/14 Celecoxib [CeleBREX] 200 mg PO BID 04/25/24 Gabapentin [Neurontin] 600 mg PO TID 04/25/24 Testosterone Cypionate [Depo-Testosterone] 200 mg IM Q14D 04/25/24 Cyclobenzaprine [Flexeril] 10 mg PO HS 05/03/24 traMADol HCL 100 mg PO Q6H PRN 05/03/24 Controlled Substance Measures - Controlled Substance Measures Is patient prescribed a controlled substance at discharge?: No
== END ==
LOC: PNWHC3 10:38
PROVIDERS: ATTEND Specialist
DX: M47.26 Other spondylosis with radiculopathy, lumbar region (principal); M46.1 Sacroiliitis, not elsewhere classified; M43.16 Spondylolisthesis, lumbar region; M71.38 Other bursal cyst, other site; Z88.5 Allergy status to narcotic agent; Z88.1 Allergy status to other antibiotic agents; Z88.8 Allergy status to other drugs, medicaments and biological substances
CPT/HCPCS: 99211

== ENCOUNTER → 2024-08-24 | Outpatient (CLI) | payer OTHER ==
[2024-08-24 15:39] LABS: Basophils # (A) 0.03 X 10*3/uL (0.00-0.10); Basophils % (A) 0.5 %; Eosinophils % (A) 3.6 %; HCT 45.2 % (39.6-50.0); HGB 14.8 g/dL (13.0-17.0); Lymphocytes # (A) 1.09 X 10*3/uL (0.90-5.00); Lymphocytes % (A) 19.6 %; MCH 30.6 pg (27.0-32.0); MCHC 32.7 g/dL (32.0-37.0); MCV 93.4 FL (80.0-97.0); Mean Platelet Volume 10.9 FL (9.5-12.2); Monocytes # (A) 0.28 X 10*3/uL (0.20-1.00); NRBC Per 100 WBC 0 X 10*3/uL (0.00-0.01); Neutrophils # (A) 3.93 X 10*3/uL (1.80-7.70); Neutrophils % (A) 70.9 %; Platelet Count 165 X 10*3/uL (140-440); RBC 4.84 X 10*6/uL (4.40-5.60); RDW 13.8 % (11.5-14.5); WBC 5.55 X 10*3/uL (4.50-10.00)
[2024-08-24 15:49] LABS: ALT 32 U/L (10-49); AST 42 U/L (14-35); Albumin 4.2 g/dL (3.8-4.9); Albumin/Globulin Ratio 2.21 Ratio (1.60-3.17); Alkaline Phosphatase 70 U/L (41-126); BUN/Creat Ratio 20.38 Ratio (12.00-20.00); Blood Urea Nitrogen 26.5 mg/dL (9.0-27.0); Calcium 8.9 mg/dL (8.7-10.3); Carbon Dioxide 23.8 mmol/L (21.6-31.8); Chloride 105 mmol/L (96-109); Globulin 1.9 g/dL (1.6-3.3); Glucose 94 mg/dL (70-110); Potassium 4.2 mmol/L (3.5-5.5); Prothrombin Time 11.2 sec (9.9-11.9); Sodium 138 mmol/L (135-145); Total Bilirubin 0.2 mg/dL (0.3-1.2); Total Protein 6.1 g/dL (6.2-8.2)
== END | disposition home or self-care (01) ==
LOC: LABPAT 11:42
PROVIDERS: ATTEND Orthopaedic Surgery
DX: Z01.812 Encounter for preprocedural laboratory examination (principal); M54.50 Low back pain, unspecified; R58 Hemorrhage, not elsewhere classified; Z79.899 Other long term (current) drug therapy
CPT/HCPCS: 80053; 85025; 85610; 86850; 86900; 86901; 87070; 93005

== ENCOUNTER 2024-09-04 05:48 | Day surgery (SDC) | payer OTHER ==
[2024-08-27 10:14] VITALS: BMI 30.4
[~2024-09-04 05:48] MED LIST changes: -LACTATED RINGERS 1,000 ML IV SCH; +ONDANSETRON 4 MG/2 ML VIAL IVP PRN; +Pre Op ABX Message 1 EACH MISC MISCELLANE ONE; +TRANEXAMIC 1,000 MG/100ML-NACL 1,000 MG in SALINE 1 100ML.BAG IVPB PRN
--- NOTE | 2024-09-04 06:37 | P.HPOR ---
History of Present Illness H&P Date: 08/08/24 .D:Date: 08/08/24 : 09:31am .T:Title: SIJ/LOW BACK FOLLOW UP Clinical Summary Brian Urbina presented today for a follow-up visit regarding his right sacroiliac (SI) joint injection performed last week. He reported experiencing 90% relief from the injection on the right side for about a day and a half, but the pain subsequently returned. This was his second SI joint injection, with the first administered at the hospital and the second at our facility, both providing temporary relief. Brian has been undergoing treatment for his SI joint pain for over six months, including physical therapy, home exercises, and imaging. He is currently on Tramadol, Gabapentin, Celebrex, and Theophylline for pain management. His pain level today is rated at 6 on the VAS scale, with persistent right-sided lumbar pain extending from the hip to the knee, affecting his inner thigh and exacerbated by walking. Examination revealed tenderness in the right SI joint, positive Cynthia's finger test, WILI test, hip thrust, thigh thrust, and compression test on the right side, with a palpable step-off at L4-5 correlating with imaging findings. Imaging showed L4-5 grade one mobile spondylolisthesis with bilateral foraminal stenosis, central stenosis, severe facet arthropathy, and right SI joint sclerosis. We discussed treatment options, and Brian opted for L5-S1 MBT to minimize invasiveness, avoiding fusion at this time. He is scheduled for surgery and will follow up post-operatively. Surgical Plan: L5-S1 bilateral medial branch transection Chief Complaint Follow-up on right SI joint injection and persistent low back pain. History Pt presents today for follow up regarding their right SI joint injection. Patient denies any fever, chills, shortness of breath, chest pain, perineal numbness and tingling, bowel or bladder incontinence/retention. The patients' past social, medical, family, surgical history, as well as review of systems, have been reviewed. Please refer to the Neurosurgery History and Physical form that has been scanned in to our electronic medical record system. 16 points review of systems completed and as stated in HPI, all other systems reviewed are negative. Physical Exam On examination today, Brian Urbina is alert and oriented times three, in no acute distress, appearing well nourished and well hydrated with overall alignment well maintained. Functionally, he demonstrates independent [id number] transition in less than 5 seconds and ambulates without assistive devices. Surgical Incision: Not provided. TTP: Tenderness to palpation of the right SI joint. Musculoskeletal examination reveals full range of motion in all major joints wit hout restriction or pain. 5/5 strength in all major muscle groups of bilateral upper extremities. 5/5 strength in all major muscle groups of the bilateral lower extremities, except 4+/5 strength in plantar flexion bilaterally. Neurologically, sensation is intact to light touch throughout C3-T1 and L2-S1 dermatomes, with 2/4 reflexes in bilateral upper and lower extremities. Duran's, clonus, Babinski, and John's signs are all negative, with no tensioning signs present. Cranial nerves II-XII are grossly intact. Vascular examination demonstrates 2/4 distal pulses in all four extremities without edema, and compartments are soft and compressible. The abdomen is soft and non-tender to palpation, with normal, non-labored respirations noted. Imaging Patient's imaging is reviewed again. He has L4-5 grade one mobile spondylolisthesis with bilateral foraminal stenosis, central stenosis, severe facet arthropathy, and right SI joint sclerosis. Assessment 1. Right sacroiliitis, unspecified - ICD: M46.1 2. L4-5 grade one spondylolisthesis, unstable - ICD: M43.16 3. Lower extremity radiculopathy - ICD: M54.16 4. Low back pain - ICD: M54.5 Plan - Obtain x-ray of right SI joint and right hip. - Schedule CT of pelvis for further evaluation of SI joint. - Discussed treatment options including SI joint fusion and L4-5 fusion. - Patient elected for L5-S1 MBT to minimize invasiveness. - Surgery scheduled with [facility]. - Follow up post-operatively. Medical Necessity Note: Brian Urbina demonstrates clear medical necessity for surgical intervention based on his clinical presentation and diagnostic findings. The patient has failed conservative management including multiple SI joint injections (providing only temporary relief), physical therapy, home exercises, and multimodal pharmacologic therapy (Tramadol, Gabapentin, Celebrex, and Theophylline). His persistent right-sided lumbar pain radiating to the lower extremity significantly impacts his functional status despite these interventions. Physical examination findings are consistent with right sacroiliitis, confirmed by positive provocative tests (Cynthia's finger test, WILI, hip thrust, thigh thrust, and compression test). Advanced imaging documents L4-5 grade one mobile spondylolisthesis with bilateral foraminal stenosis, central stenosis, severe facet arthropathy, and right SI joint sclerosis - all correlating with his clinical presentation. The chronicity (>6 months), severity (VAS 6/10), and functional limitation of his condition warrant surgical intervention as the appropriate next step in his care pathway. Surgical Rationale Note: The selection of L5-S1 Minimally Invasive Biportal Technique (MBT) for this patient represents a carefully considered surgical approach based on his specific pathology and preferences. Given the documented L4-5 grade one mobile spondylolisthesis with associated stenosis and facet arthropathy, alongside right SI joint pathology, surgical stabilization is ind icated. While traditional fusion approaches were discussed, the MBT procedure was selected as it offers several advantages in this case: 1) minimally invasive access resulting in reduced tissue trauma, blood loss, and postoperative pain; 2) preservation of [place] anatomy where possible while addressing the primary pain generators; 3) potential for faster recovery and rehabilitation; 4) avoidance of extensive instrumentation while still providing adequate decompression and stabilization; and 5) maintaining future treatment options should they become necessary. This approach aligns with the patient's expressed preference to minimize surgical invasiveness while effectively addressing his underlying pathology, making it the most appropriate surgical strategy for this particular clinical scenario. Risks and Benefits Statement: The proposed L5-S1 Minimally Invasive Biportal Technique (MBT) for Brian Urbina offers several benefits including less tissue disruption compared to traditional open fusion, smaller incisions resulting in reduced blood loss and postoperative pain, shorter hospital stay, quicker return to daily activities, and preservation of adjacent spinal segments while ef fectively addressing his underlying pathology of L4-5 spondylolisthesis and right SI joint dysfunction. However, this procedure is not without risks, which include but are not limited to: potential for infection (1-3%), bleeding requiring transfusion (<1% with MBT approach), nerve injury potentially causing new or worsened neurological symptoms (1-2%), dural tear with potential cerebrospinal fluid leak (1-3%), incomplete relief of symptoms (10-15%), hardware complications such as screw loosening or malposition (<5%), adjacent segment disease over time (2-3% annually), anesthesia-related complications, and the rare but serious risks of deep vein thrombosis, pulmonary embolism, and in extremely rare cases, paralysis or . Mr. Urbina's specific risk profile is influenced by his comorbidities, previous treatments, and current clinical status, though the minimally invasive nature of the MBT approach may mitigate several of these risks compared to traditional open procedures while still offering substantial potential for symptom improvement and functional recovery. Follow Up Follow up post-operatively. Plan at Next Visit Review post-operative progress and imaging results. Patient Education Medications Reviewed: YES In our visit today Brian Urbina and I have had a chance to go over my understanding of the patient's current condition, the natural course history without intervention and various interventional options. Questions were invited and answered, and the patient wishes to proceed as outlined above. I will be sure to keep you updated after Brian Urbina returns here for further follow-up. Thank you again for your referral. Please do not hesitate to contact me if you have any further questions. Signed and authenticated by: Richi Sen DO [facility] [place] [address] This message is confidential, intended only for the named recipient(s) and may contain information that is privileged or exempt from disclosure under applicable law. If you are not the intended recipient(s), you are notified that the dissemination, distribution or copying of this information is strictly prohibited. If you received this message in error, please notify the sender then delete this message. 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 occasional rapid heart rate. bph. no meds for BP or cholesterol at this time. some short term memory loss,focus issues,comprehension per pt History of Any Multi-Drug Resistant Organisms: None Reported Additional Past Surgical History / Comment(s): sinus surgery x3, skin cancer removal, orbital fracture repair, egd Past Anesthesia/Blood Transfusion Reactions: No Reported Reaction Additional Past Anesthesia/Blood Transfusion Reaction / Comment(s): no hx blood transfusion Smoking Status: Never smoker - Past Family History Mother Family Medical History: Diabetes Mellitus, Rheumatoid Arthritis (RA) Medications and Allergies Home Medications Medication Instructions Recorded Confirmed Type Naproxen 500 mg PO BID PRN 03/29/14 08/27/24 History Celecoxib [CeleBREX] 200 mg PO BID 04/25/24 08/27/24 History Gabapentin [Neurontin] 600 mg PO TID 04/25/24 09/04/24 History Testosterone Cypionate 200 mg IM Q14D 04/25/24 09/04/24 History [Depo-Testosterone] Cyclobenzaprine [Flexeril] 10 mg PO HS 05/03/24 09/04/24 History traMADol HCL 100 mg PO Q6H PRN 05/03/24 09/04/24 History Acetaminophen [Tylenol Arthritis] 1,300 mg PO Q8H PRN 08/27/24 09/04/24 History Allergies Allergy/AdvReac Type Severity Reaction Status Date / Time fentanyl Allergy Rash/Hives Verified 09/04/24 06:26 moxifloxacin HCl Allergy Anaphylaxis Verified 08/27/24 10:03 [From Avelox] duloxetine HCl AdvReac Nausea & Verified 08/27/24 10:03 [From Cymbalta] Vomiting Physical Examination Osteopathic Statement: *. No significant issues noted on an osteopathic str uctural exam other than those noted in the History and Physical/Consult.
[2024-09-04 06:43] LABS: Glucose,Whole Blood 86 mg/dL (70-110)
[2024-09-04] MEDS: IV FLUID CONTINUATION 1,000 ML IV ONE ×2 (06:50→08:29)
[2024-09-04] MEDS: ACETAMINOPHEN TAB 500 MG TAB PO PRN (06:50)
[2024-09-04] MEDS: DEXAMETHASONE SOD PHOSPHATE 4 MG/ML 1 ML VIAL IV ONE (06:51)
[2024-09-04] MEDS: LACTATED RINGERS 1,000 ML IV SCH (06:51)
[2024-09-04] MEDS: SCOPOLAMINE 1 MG/72 HR PATCH TRANSDERM ONE (06:51)
[2024-09-04] MEDS: GABAPENTIN 300 MG CAP PO PRN (06:51)
[2024-09-04] MEDS: ONDANSETRON 4 MG/2 ML VIAL IVP ONE (06:51)
[2024-09-04] MEDS ORDERED: MIDAZOLAM 2 MG/2 ML VIAL IV PRN (07:00)
[2024-09-04] MEDS ORDERED: LIDOCAINE 1% INJ 10MG/ML (20 ML MDV) ONE (07:24)
[2024-09-04] MEDS ORDERED: NEOSTIGMINE 1 MG/ML 10 ML VIAL ONE (07:24)
[2024-09-04] MEDS ORDERED: ROCURONIUM 10 MG/ML (5 ML VIAL) IV ONE (07:24)
[2024-09-04] MEDS ORDERED: MIDAZOLAM 2 MG/2 ML VIAL ONE (07:24)
[2024-09-04] MEDS ORDERED: PHENYLEPHRINE 10 MG/ML VIAL ONE (07:24)
[2024-09-04] MEDS ORDERED: HYDROmorphone (PF) 1 MG/ML ONE (07:24)
[2024-09-04] MEDS ORDERED: SUCCINYLCHOLINE CHLORIDE 200 MG/10 ML VIAL IV ONE (07:24)
[2024-09-04] MEDS ORDERED: PROPOFOL 10 MG/ML 20 ML VIAL IV ONE (07:24)
[2024-09-04] MEDS ORDERED: GLYCOPYRROLATE 0.2 MG/ML 2 ML VIAL ONE (07:24)
[2024-09-04] MEDS ORDERED: TRANEXAMIC 1,000 MG/100ML-NACL PREMIX BAG ONE (07:24)
[2024-09-04] MEDS ORDERED: ePHEDrine 50 MG/ML 1 ML VIAL ONE (07:24)
[2024-09-04] MEDS: SODIUM CHLORIDE 0.9% 100 ML with ceFAZolin 2,000 MG IV ONE (07:29)
[2024-09-04] MEDS: LIDOCAINE 2%-EPI 1:100,000 20 ML VIAL SQ ONE ×2 (08:04→08:37)
[2024-09-04] MEDS: BUPIVACAINE (PF) 0.5% 30 ML VIAL SQ ONE ×2 (08:04→08:37)
--- NOTE | 2024-09-04 08:43 | P.OP ---
Date of Procedure: 09/04/24 Preoperative Diagnosis: 1. L5-S1 BILATERAL FACET ARTHROSIS 2. B/L SACROILITIS 3. LOW BACK PAIN 4. BERTOLOTTI'S SYNDROME Postoperative Diagnosis: 1. L5-S1 BILATERAL FACET ARTHROSIS 2. B/L SACROILITIS 3. LOW BACK PAIN 4. BERTOLOTTI'S SYNDROME Procedure(s) Performed: 1. L5-S1 BILATERAL MEDIAL BRANCH TRANSECTION UNDER DIRECT VISUALIZATION ENDO Implants: NONE Anesthesia: HAZEL Surgeon: Richi Sen Installer Molding And Trim #1: Julio Bishop (WAS PRESENT AND ASSISTED WITH ALL ASPECTS OF THE CASE FROM POSITION TO DRESSING PLACEMENT) Estimated Blood Loss (ml): 10 IV fluids (ml): 900 Urine output (ml): 0 Pathology: none sent Condition: stable Disposition: PACU Indications for Procedure: Brian Urbina presented today for a follow-up visit regarding his right sacroiliac (SI) joint injection performed last week. He reported experiencing 90% relief from the injection on the right side for about a day and a half, but the pain subsequently returned. This was his second SI joint injection, with the first administered at the hospital and the second at our facility, both providing temporary relief. Brian has been undergoing treatment for his SI joint pain for over six months, including physical therapy, home exercises, and imaging. He is currently on Tramadol, Gabapentin, Celebrex, and Theophylline for pain management. His pain level today is rated at 6 on the VAS scale, with persistent right-sided lumbar pain extending from the hip to the knee, affecting his inner thigh and exacerbated by walking. Examination revealed tenderness in the right SI joint, positive Cynthia's finger test, WILI test, hip thrust, thigh thrust, and compression test on the right side, with a palpable step-off at L4-5 correlating with imaging findings. Imaging showed L4-5 grade one mobile spondylolisthesis with bilateral foraminal stenosis, central stenosis, severe facet arthropathy, and right SI joint sclerosis. We discussed treatment options, and Brian opted for L5-S1 MBT to minimize invasiveness, avoiding fusion at this time. He is scheduled for surgery and will follow up post-operatively. Surgical Plan: L5-S1 bilateral medial branch transection Description of Procedure: L5-S1 BILATERAL ENDO MBT The patient was seen and examined in the preoperative area. All preoperative protocols were followed. Informed consent was obtained, risks and benefits of the procedure were discussed at length. Risks including bleeding infection damage to the surrounding tissue and risk of reoperation were discussed with the patient. Risk of anesthesia up to and including was discussed with the patient. These are outlined in the risk review. They were willing to accept these risks and all of the risks of surgery. The patient was given a weight-based dose of antibiotics in the form of 2 g Ancef. The patient was seen and evaluated by the anesthesia team who deemed them fit for surgery. The site was marked, the patient was willing to proceed with the procedure. The patient was transferred to the operative suite by the Department of anesthesia. They were then drifted off to sleep by the department anesthesia and GETA was performed. The patient tolerated this well. Once confirmation of lines and ventilation the patient was transferred to a [prone Mando table very carefully]. All bony prominences including wrists, elbows, axilla, chest, hips, and thighs, and feet were padded very well. Special attention was paid to the genitalia and these were padded accordingly. SCDs were placed on bilateral lower extremities and were connected. Arms were well padded and placed [on arm boards up and out in the 90/90 position]. Once in position, again we confirmed good ventilation capabilities and that lines were running appropriately. The patient's lumbar spine was then exposed. 1010s were placed outlining the incision site. Standard alcohol was used to clean the incision site and allowed to dry. C-arm was used to biomark the patient and confirm level for incision which was marked with a skin marker. Operative briefing was performed with all teams and everyone in agreement to proceed. The patient was then prepped and draped in a normal sterile fashion. Timeout was then performed and all parties were in agreement with the procedure to be performed. 18-gauge needle and was then used to localize the left side L5-S1 facet joint. Lidocaine 2% with epi and Marcaine .25% w/o placed in this area. Skin norma was then made and a trocar for the scope was entered. X-ray used to localize this area. Once this was confirmed an accessory portal was made and a trocar placed through here. We then used the ArthroCare wand to skeletonize the transverse process on the left-hand side at L5-S1 as well as sacral ala. This was then followed out medially until the L5-S1 facet joint medially and mamillary process was identified as well as the ligament in this area. Nerve was identified at L5-S1 level and visualized directly when it was transected. ArthroCare wand was then used to burn the area to retract the nerve ends. The scope was lavaged with pictures taken in this area and inspected there was no damage or issues and no bleeding. The scope was removed. This was then repeated on the contralateral side for L5-S1 MBT on the right side as well. Fluoroscopic localization was done, followed by local anesthetic. Skin nicks made, scope introduced and MBT done as described above. The scope was lavaged with pictures taken in this area and inspected there was no damage or issues and no bleeding. The scope was removed. The wounds were then cleaned and simple stitches were placed in the skin and they were glued. These were then dressed sterilely with Band-Aids. The patient was transferred back to their hospital bed atraumatically. Patient was then awakened and extubated by the department of anesthesia having tolerated the procedure very well with no complications. They were transferred to the postoperative care unit in stable condition.
[2024-09-04 08:55] VITALS: RESP 16; TEMP 97
[2024-09-04] MEDS: HYDROmorphone 0.5 MG/0.5 ML SYRINGE IVP PRN (09:00)
--- NOTE | 2024-09-04 09:12 | FL ---
EXAMINATION TYPE: FL guidance operating room, XR lumbar spine 2 or 3V DATE OF EXAM: 09/04/2024 8:48 AM COMPARISON: Pre Operative Images if available both CT/MRI or plain film CLINICAL INDICATION: Male, 53 years old with history of MEDIAL BRANCH BLOCK; TECHNIQUE: FL guidance operating room, XR lumbar spine 2 or 3V, multiple fluoroscopic images provided for procedure. DAP: [id number] mGym2 Gycm2 uGym2 cGycm2 or equivalent. FINDINGS: IMPRESSION: 1. Report was generated for administrative purposes only. 2. Please see the operative/procedural note for further details. [facility], , 09/04/2024 9:10 AM
[2024-09-04] MEDS: HYDROcodone/APAP 10-325MG 1 EACH TAB PO ONE (11:02)
[2024-09-04 12:25] VITALS: BP 125/78; PULSE 77
== END 2024-09-04 12:39 | disposition home or self-care (01) ==
LOC: OR 05:48
PROVIDERS: ATTEND Orthopaedic Surgery
DX: M48.061 Spinal stenosis, lumbar region without neurogenic claudication (principal); M47.817 Spondylosis without myelopathy or radiculopathy, lumbosacral region; M47.816 Spondylosis without myelopathy or radiculopathy, lumbar region; M43.16 Spondylolisthesis, lumbar region; M46.1 Sacroiliitis, not elsewhere classified; I20.9 Angina pectoris, unspecified; I10 Essential (primary) hypertension; E78.5 Hyperlipidemia, unspecified; F43.10 Post-traumatic stress disorder, unspecified; F41.9 Anxiety disorder, unspecified; F32.A Depression, unspecified; G47.33 Obstructive sleep apnea (adult) (pediatric); N40.0 Benign prostatic hyperplasia without lower urinary tract symptoms; Z85.828 Personal history of other malignant neoplasm of skin; Z83.3 Family history of diabetes mellitus; Z88.8 Allergy status to other drugs, medicaments and biological substances; M06.9 Rheumatoid arthritis, unspecified; Z88.1 Allergy status to other antibiotic agents; Z88.5 Allergy status to narcotic agent; Z79.899 Other long term (current) drug therapy
CPT/HCPCS: 72100; 64772; J2250; J0330; J1100; J2710; J2405; J0690; J2003; J1171 ×2; J2704; J2371; J0665; J1596